=== PATIENT | male | born 1945 | race Caucasian/White ===

== ENCOUNTER 2024-06-06 16:49 | Inpatient (IN) ==
[2024-06-06 17:39] LABS: HCO3 VBG 29 mmol/L; Oxygen Saturation VBG 62.7 %; PCO2 VBG 40 mmHg (38-50); PO2 VBG 30 mmHg; pH VBG 7.47 (7.36-7.41)
[2024-06-06 17:39] LABS: Basophils # (auto) 0.07 K/uL (0.00-0.20); Basophils % (auto) 0.3 %; Eosinophils # (auto) 0.01 K/uL (0.00-0.50); Hematocrit (blood only) 48.2 % (42.0-52.0); Hemoglobin 17.2 g/dl (14.0-18.0); Immature Granulocytes # (auto) 0.18 K/uL (0.01-0.20); Immature Granulocytes % (auto) 0.8 %; Lymphocytes # (auto) 0.81 K/uL (1.20-3.40); Lymphocytes % (auto) 3.7 %; Mean Corpuscular Hemoglobin 29.3 pg (25.0-34.0); Mean Corpuscular Hgb Conc 35.7 g/dL (32.0-36.0); Mean Platelet Volume 10.4 fL (9.4-12.4); Monocytes # (auto) 1.54 K/uL (0.11-0.59); Monocytes % (auto) 7.1 %; Neutrophils # (auto) 19.14 K/uL (1.40-6.50); Neutrophils % (auto) 88.1 %; Platelet Count 331 K/uL (130-400); RDW Coefficient of Variation 12.7 % (11.5-14.5); RDW Standard Deviation 37.7 fL (36.4-46.3); Red Blood Count 5.88 M/uL (4.70-6.10); White Blood Count 21.75 K/ul (4.8-10.8)
--- NOTE | 2024-06-06 17:41 | Emergency Department Note ---
History of Present Illness General Chief complaint: Abdominal Pain Stated complaint: CONSTIPATED Time Seen by Provider: 06/06/24 17:23 History of Present Illness Provider complaint: Nausea Maximum Pain Intensity: 2 79-year-old male presents emergency department for nausea. Patient states he had hernia surgery done by Dr. Espinosa on Sunday. He states since then he has been having nausea hiccups and constipation. No fever. No vomiting. Patient reported feeling disoriented to nursing. Home Medications Medication Instructions Recorded Confirmed Type hydrocortisone 1 % topical cream 1 applic topical BID PRN skin 11/07/23 06/06/24 Rx irritation #28.35 grams allopurinol 300 mg tablet 300 mg PO DAILY PRN gout 05/21/24 06/06/24 History aspirin 81 mg capsule 81 mg PO QAM 05/21/24 06/06/24 History colchicine 0.6 mg capsule 0.6 mg PO QAM 05/21/24 06/06/24 History (Mitigare) lisinopril 5 mg tablet 5 mg PO QAM 05/21/24 06/06/24 History loratadine 10 mg tablet 10 mg PO QAM 05/21/24 06/06/24 History magnesium 250 mg tablet 250 mg PO QAM 05/21/24 06/06/24 History metoprolol succinate 100 mg 100 mg PO QAM 05/21/24 06/06/24 History tablet,extended release 24 hr potassium gluconate 550 mg (90 mg) 550 mg PO QAM 05/21/24 06/06/24 History tablet ascorbic acid (vitamin C) 250 mg 250 mg PO DAILY 06/03/24 06/06/24 History tablet (Vitamin C) oxycodone 5 mg tablet 5 - 10 mg (1 - 2 x 5 mg) PO 06/03/24 06/06/24 Rx .[id number] PRN pain, for initial therapy, max 6 tabs per day #15 tabs ondansetron 8 mg disintegrating 8 mg PO Q8H PRN nausea and 06/05/24 06/06/24 Rx tablet vomiting #10 tabs ketoconazole 2 % shampoo 1 applic topical DIRECTED 06/06/24 06/06/24 History Allergies Allergy/AdvReac Type Severity Reaction Status Date / Time animal dander Allergy Intermediate ITCHY Verified 06/06/24 18:51 EYES, SNEEZING, RUNNY NOSE, CONGESTION house dust Allergy Intermediate ITCHY Verified 06/06/24 18:51 EYES, SNEEZING, RUNNY NOSE, CONGESTION house dust mite Allergy Intermediate ITCHY Verified 06/06/24 18:51 EYES, SNEEZING, RUNNY NOSE, CONGESTION Penicillins Allergy Intermediate HIVES, Verified 06/06/24 18:51 ULCERATIONS OF MOUTH ragweed pollen Allergy Intermediate ITCHY Verified 06/06/24 18:51 EYES, SNEEZING, RUNNY NOSE, CONGESTION Sulfa (Sulfonamide Allergy Intermediate HIVES,ULCERATIONS Verified 06/06/24 18:51 Antibiotics) OF MOUTH weed pollen Allergy Intermediate ITCHY Verified 06/06/24 18:51 EYES, SNEEZING, RUNNY NOSE, CONGESTION shellfish derived AdvReac Severe GOUT FLARE Verified 06/06/24 18:51 UP Past Med/Surg History Problem List (Updated 06/06/24 @ 20:06 by Brando Olsen MD) Postoperative nausea (Acute) Elevated troponin (Acute) Hyponatremia (Acute) Encounter for pre-operative examination Arthritis Recurrent unilateral inguinal hernia with incarceration Right groin mass Right inguinal hernia Adenomatous polyp of colon Carpal tunnel syndrome, bilateral upper limbs Therapeutic drug monitoring Gout Diastasis recti Actinic keratoses (Acute) Ankle pain, right (Acute) Benign essential hypertension (Acute) Chronic gout (Acute) Obstructive sleep apnea (Acute) Seborrheic dermatitis (Acute) Vitiligo (Acute) Medical History ALBER (obstructive sleep apnea) CPAP Chronic gout Benign essential hypertension Hx of colonic polyp Surgical History H/O right inguinal hernia repair (06/03/24) Right Open Incarcerated Recurrent Inguinal Hernia Repair with Mesh(Right) - Angelito Espinosa DO History of anesthesia reaction severe cramps/dry heaves Hx of detached retina repair several History of cataract surgery b/l History of colonoscopy (2022) History of tonsillectomy and adenoidectomy History of inguinal hernia repair right 1968 History of cholecystectomy 1999 History of total hip replacement right Family History Brother Coronary heart disease Acute myocardial infarction Father Colon cancer, Onset Age: 60 of it metastatic to liver 62 Mother Stroke Hypertension Grandfather (Paternal) Myocardial infarction, Onset Age: 59 RI Grandfather (Maternal) Myocardial infarction, Onset Age: 40 RI age 40 Grandmother (Maternal) Schizophrenia, Onset Age: 60 Denies family history of Ovarian cancer Prostate cancer Breast cancer Social History Smoking Status: Never smoker Second Hand Exposure: No; Do You Dip or Chew Tobacco: No; Hx Alcohol Use: No Hx Substance Use: No Preferred Language: Faroese Communication Ability: Effective Visual Impairment: Limited Hearing Ability: Normal Emergency Room Clerk Required: No Beliefs That Will Affect Care: None marital status: Current Living Situation: Spouse current occupational status: employed 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 How many Children do You have: 2 Feels Safe at Home: Yes Childhood Exposure to Second-Hand Smoke: No Diet: regular caffeine: Yes during the past year weight has: remained stable Dental Care, Regularly: Yes Physical Activity Frequency: Daily Seatbelt Use: always Sunscreen Use: Yes Assistive Devices: Glasses Physical Exam Vital Signs Vital Signs - 24 hr 06/06/24 17:00 06/06/24 17:21 06/06/24 17:21 Temperature 36.6 C Temperature Source Temporal Artery Scan Pulse Rate 67 Pulse Rate [Apical] 67 Pulse Rate from SpO2 Sensor Respiratory Rate 18 20 Respiratory Effort / Characteristics Non-Labored Spontaneous Non-Labored Spontaneous Respiratory Depth Normal Normal Respiratory Pattern Regular Blood Pressure 225/110 H Blood Pressure [Left Arm] 224/121 H Blood Pressure Mean 148 Blood Pressure Mean [Left Arm] 155 Blood Pressure Position Sitting Pulse Oximetry 95 98 96 Oxygen Delivery Method Room Air Room Air Room Air Sepsis Recent Fever Within 48 Hours No Sepsis New/Unexplained Change in Mental Status N/A Sepsis Action Taken by Nursing No Action Required 06/06/24 17:24 06/06/24 17:34 06/06/24 18:03 Temperature Temperature Source Pulse Rate 67 Pulse Rate [Apical] 73 Pulse Rate from SpO2 Sensor Respiratory Rate 18 Respiratory Effort / Characteristics Non-Labored Spontaneous Respiratory Depth Normal Respiratory Pattern Blood Pressure Blood Pressure [Left Arm] 199/102 H Blood Pressure Mean Blood Pressure Mean [Left Arm] 134 Blood Pressure Position Pulse Oximetry 95 98 Oxygen Delivery Method Room Air Room Air Sepsis Recent Fever Within 48 Hours Sepsis New/Unexplained Change in Mental Status Sepsis Action Taken by Nursing 06/06/24 18:37 06/06/24 19:00 06/06/24 19:00 Temperature 36.6 C Temperature Source Oral Pulse Rate 72 Pulse Rate [Apical] 71 71 Pulse Rate from SpO2 Sensor 72 Respiratory Rate 20 18 17 Respiratory Effort / Characteristics Non-Labored Spontaneous Non-Labored Spontaneous Respiratory Depth Normal Normal Respiratory Pattern Regular Blood Pressure 212/133 H Blood Pressure [Left Arm] 196/111 H 212/133 H Blood Pressure Mean 174 Blood Pressure Mean [Left Arm] 139 159 Blood Pressure Position Pulse Oximetry 94 94 94 Oxygen Delivery Method Room Air Room Air Room Air Sepsis Recent Fever Within 48 Hours Sepsis New/Unexplained Change in Mental Status Sepsis Action Taken by Nursing 06/06/24 19:30 06/06/24 20:00 06/06/24 20:15 Temperature Temperature Source Pulse Rate 76 76 74 Pulse Rate [Apical] Pulse Rate from SpO2 Sensor 74 73 Respiratory Rate 20 17 15 Respiratory Effort / Characteristics Respiratory Depth Respiratory Pattern Blood Pressure 221/132 H 210/134 H 196/122 H Blood Pressure [Left Arm] Blood Pressure Mean 161 163 173 Blood Pressure Mean [Left Arm] Blood Pressure Position Pulse Oximetry 94 94 95 Oxygen Delivery Method Room Air Room Air Room Air Sepsis Recent Fever Within 48 Hours Sepsis New/Unexplained Change in Mental Status Sepsis Action Taken by Nursing 06/06/24 20:46 06/06/24 21:00 06/06/24 21:12 Temperature Temperature Source Pulse Rate 71 72 Pulse Rate [Apical] 75 Pulse Rate from SpO2 Sensor 71 Respiratory Rate 19 20 Respiratory Effort / Characteristics Non-Labored Spontaneous Respiratory Depth Normal Respiratory Pattern Regular Blood Pressure 218/122 H Blood Pressure [Left Arm] 186/106 H Blood Pressure Mean 154 Blood Pressure Mean [Left Arm] 132 Blood Pressure Position Pulse Oximetry 94 94 Oxygen Delivery Method Room Air Room Air Sepsis Recent Fever Within 48 Hours Sepsis New/Unexplained Change in Mental Status Sepsis Action Taken by Nursing Physical Exam HENT: Exam performed. - Head: Normocephalic and atraumatic. - Mouth/Throat: The oropharynx is clear and moist. No trismus in the jaw. No dental abscesses or uvula swelling. No oropharyngeal exudate or tonsillar abscesses. EYES: Conjunctivae and EOM are normal. Pupils are equal, round, and reactive to light. Right eye exhibits no discharge. Left eye exhibits no discharge. No scleral icterus. NECK: Normal range of motion. Neck supple. No JVD present. CV: Normal rate, regular rhythm, normal heart sounds and intact distal pulses. There is no peripheral edema. Palpable radial pulses bue. PULM/CHEST: Effort normal and breath sounds normal. No respiratory distress. No stridor. He has no wheezes. He has no rales. ABD: The abdomen is soft. Incision appears clean and dry in the right inguinal area. There are some ecchymosis around the right inguinal area. There is no drainage or bleeding from the incision. There is no tenderness. There is no rebound, no guarding : Ecchymosis over the patient's scrotum NEURO: He is alert and oriented to person, place, and time. He has normal strength. No cranial nerve deficit or sensory deficit. Coordination and gait normal. Cerebellar tests wnl. Course Course 1722: The patient was evaluated in room A2. A complete history and physical exam was performed Cardiac monitoring: An order was placed for continuous cardiac monitoring. The monitor shows a rate of 70 with sinus rhythm interpreted by ri 1905: Labs show leukocytosis 21.75. Sodium 127. Potassium 3.2. Gentle IV hydration started. High-sensitivity troponin 28.2. Patient not reporting any chest pain. Procalcitonin lactic acid within normal limits. CT head and chest x-ray is unremarkable. CT abdomen pelvis shows inflammatory changes of right groin with small pockets of fluid and gas likely representing postoperative changes. Prostamegaly with inflammation of the blood. Urinalysis is not concerning for UTI. Discussed with general surgery currently on-call for patient's surgeon Dr. Espinosa. She will be down to evaluate the patient. Will plan to admit the patient to medicine. [facility] will [facility] the patient for admission. Administered Medications Sodium Chloride (Nss) 1,000 mls @ 80 mls/hr IV .[id number] BEVERLEY Stop: 06/07/24 18:29 Last Admin: 06/06/24 19:49 Dose: 80 mls/hr Documented By: PURVI Discontinued Medications Sodium Chloride (Nss) 500 mls @ 125 mls/hr IV .Q4H BEVERLEY Stop: 06/06/24 21:44 Last Infusion: 06/06/24 21:52 Dose: Infused Documented By: Admin: 06/06/24 17:54 Dose: 125 mls/hr Documented By: HARLEY Ioversol (Optiray 320 100ml) 93 ml IV ONCE ONE Stop: 06/06/24 17:44 Last Admin: 06/06/24 17:43 Dose: 93 ml Documented By: OSEI Ondansetron HCl (Ondansetron Inj 2 Mg/Ml 2 Ml Vial) 4 mg IV NOW STA Stop: 06/06/24 17:42 Last Admin: 06/06/24 17:54 Dose: 4 mg Documented By: HARLEY Medical Decision Making Medical Records Attestation: I reviewed the patient's medical records. External medical records reviewed. Patient had open incarcerated recurrent inguinal hernia repair performed by Dr. Espinosa on June 03, 2024. Laboratory Data Attestation: I reviewed the patient's lab results. 06/06/24 17:24 06/06/24 17:24 Lab Results 06/06/24 06/06/24 06/06/24 Range/Units 17:24 17:25 17:34 WBC 21.75 H (4.8-10.8) K/ul RBC 5.88 (4.70-6.10) M/uL Hgb 17.2 (14.0-18.0) g/dl POC Hgb 16.3 (14.0-18.0) g/dl Hct 48.2 (42.0-52.0) % POC Hct 48 (42-52) % MCV 82.0 (80.0-100.0) fL MCH 29.3 (25.0-34.0) pg MCHC 35.7 (32.0-36.0) g/dL RDW Std Deviation 37.7 (36.4-46.3) fL RDW Coeff of [place] 12.7 (11.5-14.5) % Plt Count 331 (130-400) K/uL MPV 10.4 (9.4-12.4) fL Immature Gran % (Auto) 0.8 % Neut % (Auto) 88.1 % Lymph % (Auto) 3.7 % [place] % (Auto) 7.1 % Eos % (Auto) 0.0 % Baso % (Auto) 0.3 % Neut # (Auto) 19.14 H (1.40-6.50) K/uL Lymph # (Auto) 0.81 L (1.20-3.40) K/uL [place] # (Auto) 1.54 H (0.11-0.59) K/uL Eos # (Auto) 0.01 (0.00-0.50) K/uL Baso # (Auto) 0.07 (0.00-0.20) K/uL Immature Gran # (Auto) 0.18 (0.01-0.20) K/uL PT 11.8 (9.0-12.0) Seconds INR 1.1 (0.9-1.1) APTT 32 H (21-31) Seconds PTT Ratio 1.2 VBG pH 7.47 H (7.36-7.41) VBG pCO2 40 (38-50) mmHg VBG pO2 30 mmHg VBG HCO3 29 mmol/L VBG O2 Saturation 62.7 % VBG Base Excess 5.0 mEq/L POC Sodium 127 L (135-144) mmol/L Sodium 127 L (136-145) mmol/L POC Potassium 2.8 L (3.3-5.0) mmol/L Potassium 3.2 L (3.5-5.1) mmol/L POC Chloride 87 L (101-112) mmol/L Chloride 86 L (98-107) mmol/L Carbon Dioxide 31 (21-32) mmol/L POC Total CO2 28 (24-31) mmol/L Anion Gap 10 (3-11) POC Anion Gap 16.0 (16-25) mmol/L POC BUN 21 H (7-18) mg/dl BUN 19 (6-23) mg/dl Creatinine 1.01 (0.6-1.4) mg/dl POC Creatinine 1.1 (0.6-1.3) mg/dl Est Cr Clr Drug Dosing 68.0 ml/min eGFR 76.60 BUN/Creatinine Ratio 18.8 (10-20) Glucose 136 H (70-99(Fasting)) mg/dl POC Glucose (other) 135 H (70-99) mg/dl Lactate 1.5 (0.4-2.0) mmol/L Calcium 9.6 (8.6-10.3) mg/dl POC Ioniz Calcium Gigi 1.04 L (1.12-1.32) mmol/l Magnesium 1.6 L (1.7-2.4) mg/dl Total Bilirubin 1.7 H (0.2-1.0) mg/dl AST 18 (13-39) U/L ALT 13 (7-52) U/L Alkaline Phosphatase 79 (34-104) U/L Troponin I High Sens 28.2 H (0-20) pg/ml Total Protein 8.7 H (6.0-8.3) gm/dl Albumin 4.6 (3.4-5.0) gm/dl Globulin 4.1 H (2.5-4.0) gm/dl Albumin/Globulin Ratio 1.1 (0.9-2) Lipase 10 L (11-82) U/L Procalcitonin 0.13 (0-0.5) ng/ml Urine Color Urine Appearance (Clear) Urine pH (4.5-7.5) Ur Specific [place] (1.000-1.030) Urine Protein (Negative) Urine Glucose (UA) (Negative) Urine Ketones (Negative) Urine Blood (Negative) Urine Nitrite (Negative) Urine Bilirubin (Negative) Urine Urobilinogen (Negative) Ur Leukocyte Esterase (Negative) Urine WBC (Auto) (0-5) /hpf Urine RBC (Auto) (0-2) /hpf U Hyaline Cast (Auto) (0-2) /lpf U Epithel Cells (Auto) (0-2) /hpf Urine Bacteria (Auto) (None Seen) 06/06/24 06/06/24 Range/Units 18:10 18:55 WBC (4.8-10.8) K/ul RBC (4.70-6.10) M/uL Hgb (14.0-18.0) g/dl POC Hgb (14.0-18.0) g/dl Hct (42.0-52.0) % POC Hct (42-52) % MCV (80.0-100.0) fL MCH (25.0-34.0) pg MCHC (32.0-36.0) g/dL RDW Std Deviation (36.4-46.3) fL RDW Coeff of [place] (11.5-14.5) % Plt Count (130-400) K/uL MPV (9.4-12.4) fL Immature Gran % (Auto) % Neut % (Auto) % Lymph % (Auto) % [place] % (Auto) % Eos % (Auto) % Baso % (Auto) % Neut # (Auto) (1.40-6.50) K/uL Lymph # (Auto) (1.20-3.40) K/uL [place] # (Auto) (0.11-0.59) K/uL Eos # (Auto) (0.00-0.50) K/uL Baso # (Auto) (0.00-0.20) K/uL Immature Gran # (Auto) (0.01-0.20) K/uL PT (9.0-12.0) Seconds INR (0.9-1.1) APTT (21-31) Seconds PTT Ratio VBG pH (7.36-7.41) VBG pCO2 (38-50) mmHg VBG pO2 mmHg VBG HCO3 mmol/L VBG O2 Saturation % VBG Base Excess mEq/L POC Sodium (135-144) mmol/L Sodium (136-145) mmol/L POC Potassium (3.3-5.0) mmol/L Potassium (3.5-5.1) mmol/L POC Chloride (101-112) mmol/L Chloride (98-107) mmol/L Carbon Dioxide (21-32) mmol/L POC Total CO2 (24-31) mmol/L Anion Gap (3-11) POC Anion Gap (16-25) mmol/L POC BUN (7-18) mg/dl BUN (6-23) mg/dl Creatinine (0.6-1.4) mg/dl POC Creatinine (0.6-1.3) mg/dl Est Cr Clr Drug Dosing ml/min eGFR BUN/Creatinine Ratio (10-20) Glucose (70-99(Fasting)) mg/dl POC Glucose (other) (70-99) mg/dl Lactate (0.4-2.0) mmol/L Calcium (8.6-10.3) mg/dl POC Ioniz Calcium Gigi (1.12-1.32) mmol/l Magnesium (1.7-2.4) mg/dl Total Bilirubin (0.2-1.0) mg/dl AST (13-39) U/L ALT (7-52) U/L Alkaline Phosphatase (34-104) U/L Troponin I High Sens 16.7 D (0-20) pg/ml Total Protein (6.0-8.3) gm/dl Albumin (3.4-5.0) gm/dl Globulin (2.5-4.0) gm/dl Albumin/Globulin Ratio (0.9-2) Lipase (11-82) U/L Procalcitonin (0-0.5) ng/ml Urine Color Yellow Urine Appearance Clear (Clear) Urine pH 7.0 (4.5-7.5) Ur Specific [place] 1.017 (1.000-1.030) Urine Protein 1+ H (Negative) Urine Glucose (UA) Negative (Negative) Urine Ketones Negative (Negative) Urine Blood 1+ H (Negative) Urine Nitrite Negative (Negative) Urine Bilirubin Negative (Negative) Urine Urobilinogen Negative (Negative) Ur Leukocyte Esterase Negative (Negative) Urine WBC (Auto) 0-5 (0-5) /hpf Urine RBC (Auto) 6-10 H (0-2) /hpf U Hyaline Cast (Auto) 0-2 (0-2) /lpf U Epithel Cells (Auto) 0-2 (0-2) /hpf Urine Bacteria (Auto) None Seen (None Seen) Imaging Data Attestation: I personally reviewed and interpreted this imaging study as follows: My Impression: Chest x-ray negative. Airway clear. No pneumothorax. No consolidation. No cardiomegaly or cephalization.. No free air under the diaphragm. No fractures of the skeletal structures. Radiologist's Impression: Abdomen/Pelvis CT 06/06/24 17:24 CT ABDOMEN and PELVIS with INTRAVENOUS CONTRAST HISTORY: Abdominal pain TECHNIQUE: CT abdomen and pelvis with contrast. IV CONTRAST: 100 mL of OMNIPAQUE 300 ENTERIC CONTRAST: Not Given COMPARISON: FINDINGS: LOWER CHEST: Mild cardiac enlargement. Coronary calcifications. LIVER: No focal lesion identified. Hepatic steatosis and hepatomegaly. GALLBLADDER/BILIARY: Unremarkable gallbladder. No abnormal biliary dilatation. SPLEEN: Unremarkable. PANCREAS: Unremarkable. ADRENALS: Unremarkable. KIDNEYS: Cortical cysts. No stones or hydronephrosis identified. PERITONEUM/RETROPERITONEUM. No lymphadenopathy by size criteria. No aortic aneurysm. GASTROINTESTINAL: No obstruction. Normal appendix. Multiple loops of small bowel demonstrate mild inflammatory dense wall thickening. There is mild gastric wall thickening as well. Colonic diverticulosis without evidence of diverticulitis. Small duodenal diverticula. REPRODUCTIVE: Enlarged prostate gland with coarse calcifications impinging upon the urinary bladder outlet. URINARY BLADDER: Moderately distended with circumferential wall thickening. ABDOMINAL Wall: Inflammatory changes in the right groin with small pockets of fluid and gas in the inguinal canal extending into the right scrotum. BONES: No acute findings. Right hip arthroplasty. IMPRESSION: Findings suggesting mild gastroenteritis. Normal appendix is identified. Prostamegaly enlarged, nodular prostate causing urinary bladder outlet obstruction. Inflammatory appearance of the urinary bladder could also be due to superimposed cystitis. Recommend correlation with urinalysis. Inflammatory changes in the right groin with small pockets of fluid and gas may represent postoperative changes from recent inguinal hernia repair. Please clinically correlate with direct inspection to exclude superimposed infection/early abscess formation. Electronically signed by Evens Gutierrez 06-06-2024 6:28 PM Chest X-Ray 06/06/24 17:24 EXAM: XR chest 1V portable CLINICAL HISTORY: Sepsis. TECHNIQUE: X-ray images of the chest were obtained in AP projection. COMPARISON: No prior studies available for comparison. FINDINGS: Pulmonary Parenchyma: Lungs are clear bilaterally. No evidence of consolidation, collapse, or focal opacities. No pulmonary nodules identified. Minimal blunting of both costophrenic angles, donating mild pleural effusion / pleural thickening. Heart and Mediastinum: Heart size and shape are normal. No mediastinal widening or masses. No hilar or mediastinal lymphadenopathy. LEDs are overlaying both chest modi Bony Thorax: Bony thorax appears intact without fractures or deformities. Soft Tissues: Soft tissues overlying the chest wall are unremarkable. IMPRESSION: 1. No acute cardiopulmonary abnormalities identified. 2. Minimal blunting of both costophrenic angles, donating mild pleural effusion / pleural thickening. Electronically signed by Leo Lira 06-06-2024 6:[address] 06/06/24 17:25 Clinical History: Confusion Technique: Axial computed tomography images were obtained of the brain without intravenous contrast. Findings: There is diffuse cerebral atrophy, within expected limits for the patient's age. Areas of decreased attenuation are seen within the periventricular white matter, likely representing chronic small vessel ischemic disease. There is no definite sign of acute or old infarction. No intracranial hemorrhage is evident. No definite mass lesion is seen on this noncontrast examination. There is no midline shift or other form of herniation. No hydrocephalus is seen. No fracture is identified. The orbits and the visualized paranasal sinuses appear unremarkable. The mastoid air cells appear clear. Impression: 1. Cerebral atrophy and chronic small vessel ischemic disease 2. Otherwise unremarkable noncontrast CT of the brain Electronically signed by Eduardo Motley 06-06-2024 6:15 PM ECG Data Attestation: I personally reviewed and interpreted this ECG as follows: Rate (beats per minute): 67 Rhythm: + normal sinus ECG Intervals/blocks: + Normal QRS, + Normal FL and + Normal QT-c ECG ST segments: + Normal ST segments [facility] Narrative 1723: The patient was evaluated in room A2. A complete history and physical exam was performed Cardiac monitoring: An order was placed for continuous cardiac monitoring. The monitor shows a rate of 70 with sinus rhythm interpreted by me 1905: Labs show leukocytosis 21.75. Sodium 127. Potassium 3.2. Gentle IV hydration started. High-sensitivity troponin 28.2. Patient not reporting any chest pain. Procalcitonin lactic acid within normal limits. CT head and chest x-ray is unremarkable. CT abdomen pelvis shows inflammatory changes of right groin with small pockets of fluid and gas likely representing postoperative changes. Prostamegaly with inflammation of the blood. Urinalysis is not concerning for UTI. Discussed with general surgery currently on-call for patient's surgeon Dr. Espinosa. She will be down to evaluate the patient. Will plan to admit the patient to medicine. Dr. Hogan from [facility] hospitalist team will evaluate the patient for admission. Impression & Plan Hyponatremia, Elevated troponin, Postoperative nausea Discharge Plan Visit Data Chief Complaint: Abdominal Pain Stated Complaint: CONSTIPATED ED Provider: Brando Olsen Discharge Problem: Hyponatremia, Elevated troponin, Postoperative nausea Patient Disposition: Being Evaluated by Hospitalist Forms Stand Alone Forms: My [facility] Prescriptions Prescriptions: No Action ondansetron 8 mg tablet,disintegrating 8 mg PO Q8H PRN (Reason: nausea and vomiting) Qty: 10 0RF hydrocortisone 1 % cream 1 applic topical BID PRN (Reason: skin irritation) Qty: 28.35 2RF Rx Instructions: avoid around the eyes or rubbing eyes after use aspirin 81 mg Capsule 81 mg PO QAM metoprolol succinate 100 mg tablet extended release 24 hr 100 mg PO QAM allopurinol 300 mg tablet 300 mg PO DAILY PRN (Reason: gout) magnesium 250 mg tablet 250 mg PO QAM lisinopril 5 mg tablet 5 mg PO QAM loratadine 10 mg tablet 10 mg PO QAM potassium gluconate 550 mg (90 mg) tablet 550 mg PO QAM colchicine [Mitigare] 0.6 mg capsule 0.6 mg PO QAM ascorbic acid (vitamin C) [Vitamin C] 250 mg Tablet 250 mg PO DAILY oxycodone 5 mg tablet 5 - 10 mg PO .[id number] PRN (Reason: pain, for initial therapy, max 6 tabs per day) Qty: 15 0RF ketoconazole 2 % shampoo 1 applic topical DIRECTED Referrals Referrals: Ras Cintron MD [Primary Care Provider] -
[2024-06-06] MEDS: OPTIRAY 320 100ml IV ONE (17:43)
[2024-06-06 17:45] LABS: iSTAT Creatinine 1.1 mg/dl (0.6-1.3); iSTAT Hemoglobin 16.3 g/dl (14.0-18.0); iSTAT Ionized Calcium 1.04 mmol/l (1.12-1.32); iSTAT Potassium 2.8 mmol/L (3.3-5.0)
[2024-06-06] MEDS: ONDANSETRON INJ 2 MG/ML 2 ML VIAL IV STA (17:54)
[2024-06-06] MEDS: SODIUM CHLORIDE 0.9% 500 ML IV SCH (17:54)
[2024-06-06 17:56] LABS: Albumin Globulin Ratio 1.1 (0.9-2); Albumin Level 4.6 gm/dl (3.4-5.0); BUN Creatinine Ratio 18.8 (10-20); Bilirubin,Total 1.7 mg/dl (0.2-1.0); Calcium 9.6 mg/dl (8.6-10.3); Globulin 4.1 gm/dl (2.5-4.0); Magnesium 1.6 mg/dl (1.7-2.4); Potassium 3.2 mmol/L (3.5-5.1); Total Protein 8.7 gm/dl (6.0-8.3)
[2024-06-06 18:02] LABS: Troponin I High Sensitivity 28.2 pg/ml (0-20)
[2024-06-06 18:04] LABS: INR 1.1 (0.9-1.1); Partial Thromboplastin Ratio 1.2; Partial Thromboplastin Time 32 Seconds (21-31); Prothrombin Time 11.8 Seconds (9.0-12.0)
--- NOTE | 2024-06-06 18:17 | CT Scan Report ---
Clinical History: Confusion Technique: Axial computed tomography images were obtained of the brain without intravenous contrast. Findings: There is diffuse cerebral atrophy, within expected limits for the patient's age. Areas of decreased attenuation are seen within the periventricular white matter, likely representing chronic small vessel ischemic disease. There is no definite sign of acute or old infarction. No intracranial hemorrhage is evident. No definite mass lesion is seen on this noncontrast examination. There is no midline shift or other form of herniation. No hydrocephalus is seen. No fracture is identified. The orbits and the visualized paranasal sinuses appear unremarkable. The mastoid air cells appear clear. Impression: 1. Cerebral atrophy and chronic small vessel ischemic disease 2. Otherwise unremarkable noncontrast CT of the brain Electronically signed by Eduardo Motley 06-06-2024 6:15 PM
[2024-06-06 18:21] LABS: Appearance Urine Clear (Clear); Bacteria Urine Automated None Seen (None Seen); Bilirubin Urine Negative (Negative); Blood Urine 1+ (Negative); Cast Urine Automated 0-2 /lpf (0-2); Color Urine Yellow; Epithelial Cell Urine Auto 0-2 /hpf (0-2); Glucose Urine UA Negative (Negative); Ketones Urine Negative (Negative); Leukocyte Esterase Urine Negative (Negative); Nitrite Urine Negative (Negative); Protein Urine 1+ (Negative); Specific Gravity Urine 1.017 (1.000-1.030); Urobilinogen Urine Negative (Negative); WBC Urine Automated 0-5 /hpf (0-5)
--- NOTE | 2024-06-06 18:28 | CT Scan Report ---
CT ABDOMEN and PELVIS with INTRAVENOUS CONTRAST HISTORY: Abdominal pain TECHNIQUE: CT abdomen and pelvis with contrast. IV CONTRAST: 100 mL of OMNIPAQUE 300 ENTERIC CONTRAST: Not Given COMPARISON: FINDINGS: LOWER CHEST: Mild cardiac enlargement. Coronary calcifications. LIVER: No focal lesion identified. Hepatic steatosis and hepatomegaly. GALLBLADDER/BILIARY: Unremarkable gallbladder. No abnormal biliary dilatation. SPLEEN: Unremarkable. PANCREAS: Unremarkable. ADRENALS: Unremarkable. KIDNEYS: Cortical cysts. No stones or hydronephrosis identified. PERITONEUM/RETROPERITONEUM. No lymphadenopathy by size criteria. No aortic aneurysm. GASTROINTESTINAL: No obstruction. Normal appendix. Multiple loops of small bowel demonstrate mild inflammatory dense wall thickening. There is mild gastric wall thickening as well. Colonic diverticulosis without evidence of diverticulitis. Small duodenal diverticula. REPRODUCTIVE: Enlarged prostate gland with coarse calcifications impinging upon the urinary bladder outlet. URINARY BLADDER: Moderately distended with circumferential wall thickening. ABDOMINAL Wall: Inflammatory changes in the right groin with small pockets of fluid and gas in the inguinal canal extending into the right scrotum. BONES: No acute findings. Right hip arthroplasty. IMPRESSION: Findings suggesting mild gastroenteritis. Normal appendix is identified. Prostamegaly enlarged, nodular prostate causing urinary bladder outlet obstruction. Inflammatory appearance of the urinary bladder could also be due to superimposed cystitis. Recommend correlation with urinalysis. Inflammatory changes in the right groin with small pockets of fluid and gas may represent postoperative changes from recent inguinal hernia repair. Please clinically correlate with direct inspection to exclude superimposed infection/early abscess formation. Electronically signed by Evens Gutierrez 06-06-2024 6:28 PM
--- NOTE | 2024-06-06 18:50 | XRay Report ---
EXAM: XR chest 1V portable CLINICAL HISTORY: Sepsis. TECHNIQUE: X-ray images of the chest were obtained in AP projection. COMPARISON: No prior studies available for comparison. FINDINGS: Pulmonary Parenchyma: Lungs are clear bilaterally. No evidence of consolidation, collapse, or focal opacities. No pulmonary nodules identified. Minimal blunting of both costophrenic angles, donating mild pleural effusion / pleural thickening. Heart and Mediastinum: Heart size and shape are normal. No mediastinal widening or masses. No hilar or mediastinal lymphadenopathy. LEDs are overlaying both chest modi Bony Thorax: Bony thorax appears intact without fractures or deformities. Soft Tissues: Soft tissues overlying the chest wall are unremarkable. IMPRESSION: 1. No acute cardiopulmonary abnormalities identified. 2. Minimal blunting of both costophrenic angles, donating mild pleural effusion / pleural thickening. Electronically signed by Leo Lira 06-06-2024 6:49 PM
[2024-06-06] MEDS: SODIUM CHLORIDE 0.9% 1,000 ML IV SCH (19:49)
[2024-06-06 19:52] LABS: Troponin I High Sensitivity 16.7 pg/ml (0-20)
--- NOTE | 2024-06-06 20:20 | History & Physical Report ---
Date of Service June 06, 2024 Assessment & Plan (1) Nausea: (2) Constipation: (3) Electrolyte abnormality: (4) Benign essential hypertension: (5) Chronic gout: (6) Obstructive sleep apnea: Plan 79yo male s/p right inguinal hernia repair presenting with nausea, constipation. Patient's pain at the surgical site is minimal - he has been taking PRN Tylenol infrequently. No BM since prior to surgery. No fever, chills or other signs of infection #Nausea -Zofan PRN -KUB in AM -Clear liquids for now, advance as tolerated. Patient has been eating at home, although diminished appetite -Consider IV antibiotics - WBC count=21 #Constipation -Dulcolax 10mg DC daily -Docusate/Senna q AM -Miralax PRN #Electrolyte abnormality -Check PO4 -KCL 40mEq PO -Mg x 2gm IV -Calcium gluconate x 2gm IV -Continue IVF - LR at 100mL/hr x 2L -Repeat chemistry in AM #Hypertension -Continue Lisinopril 5mg po qAM -Continue metoprolol 100mg po qAM -Hydralazine 10mg po TID as needed for BP > 180/110 #Chronic Gout -Continue Colchicine #ALBER -CPAP qHS History of Present Illness Chief Complaint: nausea, constipation, weakness and fatigue Primary Care Provider: Ras Cintron MD Oscar Gu is a 79yo male with history of ALBER, HTN, recent repair of incarcerated right inguinal hernia on 06/03/[address] Espinosa presenting with overall fee ling of weakness, fatigue as well as nausea, constipation and hiccups. Patient reports ongoing nausea since having his surgery on 06/03. He has had dry heaving and ongoing hiccups. Last BM was on 06/03 prior to having surgery. He is passing flatus without difficulty. He notes some mild abdominal distention but no pain. Patient has been taking tylenol as needed for pain, no opioids. Has had poor appetite and decreased oral intake. No additional complaints. In the ER he is afebrile, hypertensive ER Course: Zofran NSS Allergies Allergy/AdvReac Type Severity Reaction Status Date / Time animal dander Allergy Intermediate ITCHY Verified 06/06/24 18:51 EYES, SNEEZING, RUNNY NOSE, CONGESTION house dust Allergy Intermediate ITCHY Verified 06/06/24 18:51 EYES, SNEEZING, RUNNY NOSE, CONGESTION house dust mite Allergy Intermediate ITCHY Verified 06/06/24 18:51 EYES, SNEEZING, RUNNY NOSE, CONGESTION Penicillins Allergy Intermediate HIVES, Verified 06/06/24 18:51 ULCERATIONS OF MOUTH ragweed pollen Allergy Intermediate ITCHY Verified 06/06/24 18:51 EYES, SNEEZING, RUNNY NOSE, CONGESTION Sulfa (Sulfonamide Allergy Intermediate HIVES,ULCERATIONS Verified 06/06/24 18:51 Antibiotics) OF MOUTH weed pollen Allergy Intermediate ITCHY Verified 06/06/24 18:51 EYES, SNEEZING, RUNNY NOSE, CONGESTION shellfish derived AdvReac Severe GOUT FLARE Verified 06/06/24 18:51 UP Home Medications Medication Instructions Recorded Confirmed Type hydrocortisone 1 % topical cream 1 applic topical BID PRN skin 11/07/23 06/06/24 Rx irritation #28.35 grams allopurinol 300 mg tablet 300 mg PO DAILY PRN gout 05/21/24 06/06/24 History aspirin 81 mg capsule 81 mg PO QAM 05/21/24 06/06/24 History colchicine 0.6 mg capsule 0.6 mg PO QAM 05/21/24 06/06/24 History (Mitigare) lisinopril 5 mg tablet 5 mg PO QAM 05/21/24 06/06/24 History loratadine 10 mg tablet 10 mg PO QAM 05/21/24 06/06/24 History magnesium 250 mg tablet 250 mg PO QAM 05/21/24 06/06/24 History metoprolol succinate 100 mg 100 mg PO QAM 05/21/24 06/06/24 History tablet,extended release 24 hr potassium gluconate 550 mg (90 mg) 550 mg PO QAM 05/21/24 06/06/24 History tablet ascorbic acid (vitamin C) 250 mg 250 mg PO DAILY 06/03/24 06/06/24 History tablet (Vitamin C) oxycodone 5 mg tablet 5 - 10 mg (1 - 2 x 5 mg) PO 06/03/24 06/06/24 Rx .[id number] PRN pain, for initial therapy, max 6 tabs per day #15 tabs ondansetron 8 mg disintegrating 8 mg PO Q8H PRN nausea and 06/05/24 06/06/24 Rx tablet vomiting #10 tabs ketoconazole 2 % shampoo 1 applic topical DIRECTED 06/06/24 06/06/24 History Past Med/Surg History Problem List (Updated 06/06/24 @ 22:28 by Rachna Hogan DO) Electrolyte abnormality Constipation Nausea Postoperative nausea (Acute) Elevated troponin (Acute) Hyponatremia (Acute) Encounter for pre-operative examination Arthritis Recurrent unilateral inguinal hernia with incarceration Right groin mass Right inguinal hernia Adenomatous polyp of colon Carpal tunnel syndrome, bilateral upper limbs Therapeutic drug monitoring Gout Diastasis recti Actinic keratoses (Acute) Ankle pain, right (Acute) Benign essential hypertension (Acute) Chronic gout (Acute) Obstructive sleep apnea (Acute) Seborrheic dermatitis (Acute) Vitiligo (Acute) Medical History ALBER (obstructive sleep apnea) CPAP Chronic gout Benign essential hypertension Hx of colonic polyp Surgical History H/O right inguinal hernia repair (06/03/24) Right Open Incarcerated Recurrent Inguinal Hernia Repair with Mesh(Right) - Angelito Espinosa DO History of anesthesia reaction severe cramps/dry heaves Hx of detached retina repair several History of cataract surgery b/l History of colonoscopy (2022) History of tonsillectomy and adenoidectomy History of inguinal hernia repair right 1968 History of cholecystectomy 1999 History of total hip replacement right Family History Brother Coronary heart disease Acute myocardial infarction Father Colon cancer, Onset Age: 60 of it metastatic to liver 62 Mother Stroke Hypertension Grandfather (Paternal) Myocardial infarction, Onset Age: 59 [place] Grandfather (Maternal) Myocardial infarction, Onset Age: 40 [place] age 40 Grandmother (Maternal) Schizophrenia, Onset Age: 60 Denies family history of Ovarian cancer Prostate cancer Breast cancer Social History Smoking Status: Never smoker Second Hand Exposure: No; Do You Dip or Chew Tobacco: No; Hx Alcohol Use: No Hx Substance Use: No Preferred Language: Qatari Communication Ability: Effective Visual Impairment: Limited Hearing Ability: Normal [place] Required: No Beliefs That Will Affect Care: None marital status: Current Living Situation: Spouse current occupational status: employed 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 How many Children do You have: 2 Feels Safe at Home: Yes Childhood Exposure to Second-Hand Smoke: No Diet: regular caffeine: Yes during the past year weight has: remained stable Dental Care, Regularly: Yes Physical Activity Frequency: Daily Seatbelt Use: always Sunscreen Use: Yes Assistive Devices: Glasses Review of Systems Review of Systems: All systems reviewed & are unremarkable except as noted in HPI & below Physical Exam Physical Exam: General: patient resting comfortably, NAD, non-toxic in appearance, AA&O x 4 Skin: warm, dry, intact, no rashes or lesions HEENT: NC/AT, PERRL, EOMI, anicteric sclera, conjunctiva without injection, external ear normal to inspection and nontender, nares patent, moist mucus membranes, dentition intact, no oropharyngeal lesions, neck supple, trachea midline, no LAD, no thyromegaly, no JVD Heart: +S1/S2, regular, no m/r/g Lungs: equal air entry bilaterally, no rales/rhonchi/wheezes Abd: +BS, soft, mildly distended, diminished bowel sounds, no masses/organomegaly/ascites Right inguinal hernia site with steri strips in place, c/d/i, bruising in the area, no drainage or erythema Ext: warm, 2+ pulses in UE/LE bilaterally, no clubbing/cyanosis or edema Neuro: nonfocal, patient AA&O x 4, speech intact, no facial droop, moving all extremities on command with equal strength 5/5 Results & Data Results & Data Vital Signs (Past 12 Hours) Vital Signs Temp Pulse Pulse Resp BP BP Pulse Ox 06/06/24 19:00 36.6 C 71 18 212/133 H 94 06/06/24 18:37 71 20 196/111 H 94 06/06/24 18:03 73 18 199/102 H 98 06/06/24 17:34 95 06/06/24 17:24 67 06/06/24 17:21 67 20 224/121 H 96 06/06/24 17:21 98 06/06/24 17:00 36.6 C 67 18 225/110 H 95 O2 Del Method 06/06/24 19:00 Room Air 06/06/24 18:37 Room Air 06/06/24 18:03 Room Air 06/06/24 17:34 Room Air 06/06/24 17:24 06/06/24 17:21 Room Air 06/06/24 17:21 Room Air 06/06/24 17:00 Room Air Laboratory Results Laboratory Results WBC 21.75 K/ul (4.8-10.8) H 06/06/24 17:24 RBC 5.88 M/uL (4.70-6.10) 06/06/24 17:24 Hgb 17.2 g/dl (14.0-18.0) 06/06/24 17:24 POC Hgb 16.3 g/dl (14.0-18.0) 06/06/24 17:34 Hct 48.2 % (42.0-52.0) 06/06/24 17:24 POC Hct 48 % (42-52) 06/06/24 17:34 MCV 82.0 fL (80.0-100.0) 06/06/24 17:24 MCH 29.3 pg (25.0-34.0) 06/06/24 17:24 MCHC 35.7 g/dL (32.0-36.0) 06/06/24 17:24 RDW Std Deviation 37.7 fL (36.4-46.3) 06/06/24 17:24 RDW Coeff of Vesta 12.7 % (11.5-14.5) 06/06/24 17:24 Plt Count 331 K/uL (130-400) 06/06/24 17:24 MPV 10.4 fL (9.4-12.4) 06/06/24 17:24 Immature Gran % (Auto) 0.8 % 06/06/24 17:24 Neut % (Auto) 88.1 % 06/06/24 17:24 Lymph % (Auto) 3.7 % 06/06/24 17:24 [place] % (Auto) 7.1 % 06/06/24 17:24 Eos % (Auto) 0.0 % 06/06/24 17:24 Baso % (Auto) 0.3 % 06/06/24 17:24 Neut # (Auto) 19.14 K/uL (1.40-6.50) H 06/06/24 17:24 Lymph # (Auto) 0.81 K/uL (1.20-3.40) L 06/06/24 17:24 [place] # (Auto) 1.54 K/uL (0.11-0.59) H 06/06/24 17:24 Eos # (Auto) 0.01 K/uL (0.00-0.50) 06/06/24 17:24 Baso # (Auto) 0.07 K/uL (0.00-0.20) 06/06/24 17:24 Immature Gran # (Auto) 0.18 K/uL (0.01-0.20) 06/06/24 17:24 PT 11.8 Seconds (9.0-12.0) 06/06/24 17:24 INR 1.1 (0.9-1.1) 06/06/24 17:24 APTT 32 Seconds (21-31) H 06/06/24 17:24 PTT Ratio 1.2 06/06/24 17:24 VBG pH 7.47 (7.36-7.41) H 06/06/24 17:25 VBG pCO2 40 mmHg (38-50) 06/06/24 17:25 VBG pO2 30 mmHg 06/06/24 17:25 VBG HCO3 29 mmol/L 06/06/24 17:25 VBG O2 Saturation 62.7 % 06/06/24 17:25 VBG Base Excess 5.0 mEq/L 06/06/24 17:25 POC Sodium 127 mmol/L (135-144) L 06/06/24 17:34 Sodium 127 mmol/L (136-145) L 06/06/24 17:24 POC Potassium 2.8 mmol/L (3.3-5.0) L 06/06/24 17:34 Potassium 3.2 mmol/L (3.5-5.1) L 06/06/24 17:24 POC Chloride 87 mmol/L (101-112) L 06/06/24 17:34 Chloride 86 mmol/L (98-107) L 06/06/24 17:24 Carbon Dioxide 31 mmol/L (21-32) 06/06/24 17:24 POC Total CO2 28 mmol/L (24-31) 06/06/24 17:34 Anion Gap 10 (3-11) 06/06/24 17:24 POC Anion Gap 16.0 mmol/L (16-25) 06/06/24 17:34 POC BUN 21 mg/dl (7-18) H 06/06/24 17:34 BUN 19 mg/dl (6-23) 06/06/24 17:24 Creatinine 1.01 mg/dl (0.6-1.4) 06/06/24 17:24 POC Creatinine 1.1 mg/dl (0.6-1.3) 06/06/24 17:34 Est Cr Clr Drug Dosing 68.0 ml/min 06/06/24 17:24 eGFR 76.60 06/06/24 17:24 BUN/Creatinine Ratio 18.8 (10-20) 06/06/24 17:24 Glucose 136 mg/dl (70-99(Fasting)) H 06/06/24 17:24 POC Glucose (other) 135 mg/dl (70-99) H 06/06/24 17:34 Lactate 1.5 mmol/L (0.4-2.0) 06/06/24 17:25 Calcium 9.6 mg/dl (8.6-10.3) 06/06/24 17:24 POC Ioniz Calcium Gigi 1.04 mmol/l (1.12-1.32) L 06/06/24 17:34 Magnesium 1.6 mg/dl (1.7-2.4) L 06/06/24 17:24 Total Bilirubin 1.7 mg/dl (0.2-1.0) H 06/06/24 17:24 AST 18 U/L (13-39) 06/06/24 17:24 ALT 13 U/L (7-52) 06/06/24 17:24 Alkaline Phosphatase 79 U/L (34-104) 06/06/24 17:24 Troponin I High Sens 16.7 pg/ml (0-20) D 06/06/24 18:55 Total Protein 8.7 gm/dl (6.0-8.3) H 06/06/24 17:24 Albumin 4.6 gm/dl (3.4-5.0) 06/06/24 17:24 Globulin 4.1 gm/dl (2.5-4.0) H 06/06/24 17:24 Albumin/Globulin Ratio 1.1 (0.9-2) 06/06/24 17:24 Lipase 10 U/L (11-82) L 06/06/24 17:24 Procalcitonin 0.13 ng/ml (0-0.5) 06/06/24 17:24 Urine Color Yellow 06/06/24 18:10 Urine Appearance Clear (Clear) 06/06/24 18:10 Urine pH 7.0 (4.5-7.5) 06/06/24 18:10 Ur Specific [place] 1.017 (1.000-1.030) 06/06/24 18:10 Urine Protein 1+ (Negative) H 06/06/24 18:10 Urine Glucose (UA) Negative (Negative) 06/06/24 18:10 Urine Ketones Negative (Negative) 06/06/24 18:10 Urine Blood 1+ (Negative) H 06/06/24 18:10 Urine Nitrite Negative (Negative) 06/06/24 18:10 Urine Bilirubin Negative (Negative) 06/06/24 18:10 Urine Urobilinogen Negative (Negative) 06/06/24 18:10 Ur Leukocyte Esterase Negative (Negative) 06/06/24 18:10 Urine WBC (Auto) 0-5 /hpf (0-5) 06/06/24 18:10 Urine RBC (Auto) 6-10 /hpf (0-2) H 06/06/24 18:10 U Hyaline Cast (Auto) 0-2 /lpf (0-2) 06/06/24 18:10 U Epithel Cells (Auto) 0-2 /hpf (0-2) 06/06/24 18:10 Urine Bacteria (Auto) None Seen (None Seen) 06/06/24 18:10 Impressions Abdomen/Pelvis CT 06/06/24 17:24 CT ABDOMEN and PELVIS with INTRAVENOUS CONTRAST HISTORY: Abdominal pain TECHNIQUE: CT abdomen and pelvis with contrast. IV CONTRAST: 100 mL of OMNIPAQUE 300 ENTERIC CONTRAST: Not Given COMPARISON: FINDINGS: LOWER CHEST: Mild cardiac enlargement. Coronary calcifications. LIVER: No focal lesion identified. Hepatic steatosis and hepatomegaly. GALLBLADDER/BILIARY: Unremarkable gallbladder. No abnormal biliary dilatation. SPLEEN: Unremarkable. PANCREAS: Unremarkable. ADRENALS: Unremarkable. KIDNEYS: Cortical cysts. No stones or hydronephrosis identified. PERITONEUM/RETROPERITONEUM. No lymphadenopathy by size criteria. No aortic aneurysm. GASTROINTESTINAL: No obstruction. Normal appendix. Multiple loops of small bowel demonstrate mild inflammatory dense wall thickening. There is mild gastric wall thickening as well. Colonic diverticulosis without evidence of diverticulitis. Small duodenal diverticula. REPRODUCTIVE: Enlarged prostate gland with coarse calcifications impinging upon the urinary bladder outlet. URINARY BLADDER: Moderately distended with circumferential wall thickening. ABDOMINAL Wall: Inflammatory changes in the right groin with small pockets of fluid and gas in the inguinal canal extending into the right scrotum. BONES: No acute findings. Right hip arthroplasty. IMPRESSION: Findings suggesting mild gastroenteritis. Normal appendix is identified. Prostamegaly enlarged, nodular prostate causing urinary bladder outlet obstruction. Inflammatory appearance of the urinary bladder could also be due to superimposed cystitis. Recommend correlation with urinalysis. Inflammatory changes in the right groin with small pockets of fluid and gas may represent postoperative changes from recent inguinal hernia repair. Please clinically correlate with direct inspection to exclude superimposed infection/early abscess formation. Electronically signed by Evens Gutierrez 06-06-2024 6:28 PM Chest X-Ray 06/06/24 17:24 EXAM: XR chest 1V portable CLINICAL HISTORY: Sepsis. TECHNIQUE: X-ray images of the chest were obtained in AP projection. COMPARISON: No prior studies available for comparison. FINDINGS: Pulmonary Parenchyma: Lungs are clear bilaterally. No evidence of consolidation, collapse, or focal opacities. No pulmonary nodules identified. Minimal blunting of both costophrenic angles, donating mild pleural effusion / pleural thickening. Heart and Mediastinum: Heart size and shape are normal. No mediastinal widening or masses. No hilar or mediastinal lymphadenopathy. LEDs are overlaying both chest modi Bony Thorax: Bony thorax appears intact without fractures or deformities. Soft Tissues: Soft tissues overlying the chest wall are unremarkable. IMPRESSION: 1. No acute cardiopulmonary abnormalities identified. 2. Minimal blunting of both costophrenic angles, donating mild pleural effusion / pleural thickening. Electronically signed by Leo Lira 06-06-2024 6:[address] 06/06/24 17:25 Clinical History: Confusion Technique: Axial computed tomography images were obtained of the brain without intravenous contrast. Findings: There is diffuse cerebral atrophy, within expected limits for the patient's age. Areas of decreased attenuation are seen within the periventricular white matter, likely representing chronic small vessel ischemic disease. There is no definite sign of acute or old infarction. No intracranial hemorrhage is evident. No definite mass lesion is seen on this noncontrast examination. There is no midline shift or other form of herniation. No hydrocephalus is seen. No fracture is identified. The orbits and the visualized paranasal sinuses appear unremarkable. The mastoid air cells appear clear. Impression: 1. Cerebral atrophy and chronic small vessel ischemic disease 2. Otherwise unremarkable noncontrast CT of the brain Electronically signed by Eduardo Motley 06-06-2024 6:15 PM Code Status & VTE Plan VTE Prophylaxis Plan VTE Prophylaxis will be ordered: Yes PG Care Time/CCT Total # of Minutes Spent Total Time Spent with Patient: Total time spent is greater than 50% in coordination of care (as documented) at patient's floor/unit and/or counseling patient: Coding Level of Care Code 75138 INT INP/OBS CARE 3/75MIN Diagnoses Nausea R11.0 Constipation K59.00 Electrolyte abnormality E87.8 Benign essential hypertension I10 Chronic gout without tophus, unspecified cause, unspecified site [id number] Gout etiology: unspecified cause Gout site: unspecified site Presence of tophus: without tophus Obstructive sleep apnea G47.33 (5) Chronic gout Gout etiology: unspecified cause Gout site: unspecified site Presence of tophus: without tophus Qualified Code(s): [id number].[id number] - Chronic gout, unspecified, without tophus (tophi)
--- NOTE | 2024-06-06 21:34 | Surgery Consultation ---
Date of Consultation June 06, 2024 Assessment & Plan (1) Postoperative nausea: Patient recently underwent open right inguinal hernia repair with mesh placement with Dr. Espinosa on 06/03. Patient states since surgery he has had increased nausea without any associated vomiting. He states he has not had a BM and did start taking MiraLAX this afternoon. The patient was worked up in the emergency department with elevated WBC and troponin levels along with hyponatremia and hypokalemia. CT imaging did show possible cystitis, gastroenteritis, and some post-operative changes in the right groin. Due to recent surgery, the patient was seen and evaluated this evening at bedside. He is nontoxic appearing and surgical site does not appear to be infected and incision is clean and dry with steri-strips in place. The patient is being admitted to the medical service however from a surgical standpoint, recommend the following: -Due to recent surgery, it is a possibility he could be developing a post- operative ileus and would recommend keeping the patient NPO for now with sips and ice chips. Will order a KUB for the AM to evaluate bowel-gas pattern. -WBC elevated at 21, IV abx OK from a surgical standpoint -Electrolyte replacement as needed -Ice at surgical site -Medical management per primary team, surgery will follow History of Present Illness Reason for Consultation: post-op wound check History of Present Illness The patient is a 79-year-old male who presented to the emergency department for complaints of nausea. The patient recently underwent an open right inguinal her trae repair with mesh placement on Sunday with Dr. Espinosa. The patient states since surgery his pain has been well controlled but he has had some increased nausea and started with hiccups. He denies any vomiting and has been able to eat. His who is at bedside states she called the outpatient clinic to discuss his symptoms and they did recommend starting MiraLAX. The patient did have one dose of this but states he has not helped with him having a bowel movement. The patient has not had a BM since surgery. The patient was ultimately worked up in the emergency department and was found to have an elevated WBC at 21, elevated troponin, hyponatremia and hypokalemia. His CT imaging had results of gastroenteritis, possible cystitis, and post-operative changes in the right groin. Due to recent surgery, the patient was seen and evaluated in the emergency department this evening. He is resting comfortably in bed and is nontoxic appearing. The patient states he continues to be nauseous however has improved with medication. The patient's surgical site was examined. His right groin and scrotum is noted to have some expected overlying ecchymosis however surgical incision is clean, dry and no signs of infection. Allergies Allergy/AdvReac Type Severity Reaction Status Date / Time animal dander Allergy Intermediate ITCHY Verified 06/06/24 18:51 EYES, SNEEZING, RUNNY NOSE, CONGESTION house dust Allergy Intermediate ITCHY Verified 06/06/24 18:51 EYES, SNEEZING, RUNNY NOSE, CONGESTION house dust mite Allergy Intermediate ITCHY Verified 06/06/24 18:51 EYES, SNEEZING, RUNNY NOSE, CONGESTION Penicillins Allergy Intermediate HIVES, Verified 06/06/24 18:51 ULCERATIONS OF MOUTH ragweed pollen Allergy Intermediate ITCHY Verified 06/06/24 18:51 EYES, SNEEZING, RUNNY NOSE, CONGESTION Sulfa (Sulfonamide Allergy Intermediate HIVES,ULCERATIONS Verified 06/06/24 18:51 Antibiotics) OF MOUTH weed pollen Allergy Intermediate ITCHY Verified 06/06/24 18:51 EYES, SNEEZING, RUNNY NOSE, CONGESTION shellfish derived AdvReac Severe GOUT FLARE Verified 06/06/24 18:51 UP Home Medications Medication Instructions Recorded Confirmed Type hydrocortisone 1 % topical cream 1 applic topical BID PRN skin 11/07/23 06/06/24 Rx irritation #28.35 grams allopurinol 300 mg tablet 300 mg PO DAILY PRN gout 05/21/24 06/06/24 History aspirin 81 mg capsule 81 mg PO QAM 05/21/24 06/06/24 History colchicine 0.6 mg capsule 0.6 mg PO QAM 05/21/24 06/06/24 History (Mitigare) lisinopril 5 mg tablet 5 mg PO QAM 05/21/24 06/06/24 History loratadine 10 mg tablet 10 mg PO QAM 05/21/24 06/06/24 History magnesium 250 mg tablet 250 mg PO QAM 05/21/24 06/06/24 History metoprolol succinate 100 mg 100 mg PO QAM 05/21/24 06/06/24 History tablet,extended release 24 hr potassium gluconate 550 mg (90 mg) 550 mg PO QAM 05/21/24 06/06/24 History tablet ascorbic acid (vitamin C) 250 mg 250 mg PO DAILY 06/03/24 06/06/24 History tablet (Vitamin C) oxycodone 5 mg tablet 5 - 10 mg (1 - 2 x 5 mg) PO 06/03/24 06/06/24 Rx .[id number] PRN pain, for initial therapy, max 6 tabs per day #15 tabs ondansetron 8 mg disintegrating 8 mg PO Q8H PRN nausea and 06/05/24 06/06/24 Rx tablet vomiting #10 tabs ketoconazole 2 % shampoo 1 applic topical DIRECTED 06/06/24 06/06/24 History Patient History Medical History ALBER (obstructive sleep apnea) CPAP Chronic gout Benign essential hypertension Hx of colonic polyp Surgical History H/O right inguinal hernia repair (06/03/24) Right Open Incarcerated Recurrent Inguinal Hernia Repair with Mesh(Right) - Angelito Espinosa DO History of anesthesia reaction severe cramps/dry heaves Hx of detached retina repair several History of cataract surgery b/l History of colonoscopy (2022) History of tonsillectomy and adenoidectomy History of inguinal hernia repair right 1967 History of cholecystectomy 1999 History of total hip replacement right Family History Brother Coronary heart disease Acute myocardial infarction Father Colon cancer, Onset Age: 60 of it metastatic to liver 62 Mother Stroke Hypertension Grandfather (Paternal) Myocardial infarction, Onset Age: 59 [place] Grandfather (Maternal) Myocardial infarction, Onset Age: 40 ND age 40 Grandmother (Maternal) Schizophrenia, Onset Age: 60 Denies family history of Ovarian cancer Prostate cancer Breast cancer Social History Smoking Status: Never smoker Second Hand Exposure: No; Do You Dip or Chew Tobacco: No; Hx Alcohol Use: No Hx Substance Use: No Preferred Language: Mac[place] Communication Ability: Effective Visual Impairment: Limited Hearing Ability: Normal Corporate Law Specialist Required: No Beliefs That Will Affect Care: None marital status: Current Living Situation: Spouse current occupational status: employed 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 How many Children do You have: 2 Feels Safe at Home: Yes Childhood Exposure to Second-Hand Smoke: No Diet: regular caffeine: Yes during the past year weight has: remained stable Dental Care, Regularly: Yes Physical Activity Frequency: Daily Seatbelt Use: always Sunscreen Use: Yes Assistive Devices: Glasses Review of Systems Review of Systems: All systems reviewed & are unremarkable except as noted in HPI & below Physical Exam Constitutional: WD/WN, vitals as above Respiratory: normal respiratory effort, lungs clear to auscultation Cardiovascular: RRR, no murmur, no edema Gastrointestinal (Abdomen): Percussion/Palpation: abdomen soft; abdomen nontender, no guarding, abdomen not rigid and abdomen not firm right groin with surgical incision and steri-strips in place with overlying ecchymosis. No apparent signs of infection. +appropriate TTP over the site. Results & Data Vital Signs (Past 12 Hours) Vital Signs Temp Pulse Pulse Resp BP BP Pulse Ox 06/06/24 21:12 72 06/06/24 21:00 75 20 186/106 H 94 06/06/24 20:46 71 19 218/122 H 94 06/06/24 20:15 74 15 196/122 H 95 06/06/24 20:00 76 17 210/134 H 94 06/06/24 19:30 76 20 221/132 H 94 06/06/24 19:00 72 17 212/133 H 94 06/06/24 19:00 36.6 C 71 18 212/133 H 94 06/06/24 18:37 71 20 196/111 H 94 06/06/24 18:03 73 18 199/102 H 98 06/06/24 17:34 95 06/06/24 17:24 67 06/06/24 17:21 67 20 224/121 H 96 06/06/24 17:21 98 06/06/24 17:00 36.6 C 67 18 225/110 H 95 O2 Del Method 06/06/24 21:12 06/06/24 21:00 Room Air 06/06/24 20:46 Room Air 06/06/24 20:15 Room Air 06/06/24 20:00 Room Air 06/06/24 19:30 Room Air 06/06/24 19:00 Room Air 06/06/24 19:00 Room Air 06/06/24 18:37 Room Air 06/06/24 18:03 Room Air 06/06/24 17:34 Room Air 06/06/24 17:24 06/06/24 17:21 Room Air 06/06/24 17:21 Room Air 06/06/24 17:00 Room Air Diagnostic Findings CT ABDOMEN and PELVIS with INTRAVENOUS CONTRAST HISTORY: Abdominal pain TECHNIQUE: CT abdomen and pelvis with contrast. IV CONTRAST: 100 mL of OMNIPAQUE 300 ENTERIC CONTRAST: Not Given COMPARISON: FINDINGS: LOWER CHEST: Mild cardiac enlargement. Coronary calcifications. LIVER: No focal lesion identified. Hepatic steatosis and hepatomegaly. GALLBLADDER/BILIARY: Unremarkable gallbladder. No abnormal biliary dilatation. SPLEEN: Unremarkable. PANCREAS: Unremarkable. ADRENALS: Unremarkable. KIDNEYS: Cortical cysts. No stones or hydronephrosis identified. PERITONEUM/RETROPERITONEUM. No lymphadenopathy by size criteria. No aortic aneurysm. GASTROINTESTINAL: No obstruction. Normal appendix. Multiple loops of small bowel demonstrate mild inflammatory dense wall thickening. There is mild gastric wall thickening as well. Colonic diverticulosis without evidence of diverticulitis. Small duodenal diverticula. REPRODUCTIVE: Enlarged prostate gland with coarse calcifications impinging upon the urinary bladder outlet. URINARY BLADDER: Moderately distended with circumferential wall thickening. ABDOMINAL Wall: Inflammatory changes in the right groin with small pockets of fluid and gas in the inguinal canal extending into the right scrotum. BONES: No acute findings. Right hip arthroplasty. IMPRESSION: Findings suggesting mild gastroenteritis. Normal appendix is identified. Prostamegaly enlarged, nodular prostate causing urinary bladder outlet obstruction. Inflammatory appearance of the urinary bladder could also be due to superimposed cystitis. Recommend correlation with urinalysis. Inflammatory changes in the right groin with small pockets of fluid and gas may represent postoperative changes from recent inguinal hernia repair. Please clinically correlate with direct inspection to exclude superimposed infection/early abscess formation. PG Care Time/CCT Total # of Minutes Spent Total Time Spent with Patient: Total time spent is greater than 50% in coordination of care (as documented) at patient's floor/unit and/or counseling patient: [place] [address] OP VST EST LOW 20 MIN Patient Type Established History Problem Focused Exam Problem Focused Medical Decision Making Straight Forward Diagnoses Postoperative nausea R11.0; Z98.890
[2024-06-06] MEDS: hydrALAZINE 10 MG TAB PO STA (22:18)
[2024-06-06] MEDS ORDERED: ACETAMINOPHEN 325 MG TAB PO PRN (22:21)
[2024-06-06] MEDS ORDERED: ONDANSETRON INJ 2 MG/ML 2 ML VIAL IV PRN (22:21)
[2024-06-06] MEDS ORDERED: POLYETHYLENE (MIRALAX) 17 GM PACK PO PRN (22:21)
[2024-06-06 22:39] LABS: Phosphorus 3.1 mg/dl (2.5-4.9)
[2024-06-06] MEDS: POTASSIUM CHLORIDE CRTAB 20 MEQ TABCR PO STA (23:07)
[2024-06-06] MEDS: CALCIUM GLUCONATE 1,000 MG/60 ML BAG IV SCH (23:08)
[2024-06-06] MEDS: MAGNESIUM SULFATE / D5W 1 GM/100 ML BAG IV SCH (23:11)
[2024-06-06] MEDS: bisacodyL 10 MG SUPP PR STA (23:11)
[2024-06-06] MEDS: LACTATED RINGER'S 1,000 ML IV SCH (23:13)
[2024-06-07 04:56] LABS: Hemoglobin 15.6 g/dl (14.0-18.0); Mean Corpuscular Hemoglobin 30.1 pg (25.0-34.0); Mean Corpuscular Hgb Conc 37.1 g/dL (32.0-36.0); Mean Corpuscular Volume 80.9 fL (80.0-100.0); Mean Platelet Volume 10.5 fL (9.4-12.4); Platelet Count 300 K/uL (130-400); RDW Coefficient of Variation 12.8 % (11.5-14.5); RDW Standard Deviation 37.4 fL (36.4-46.3); Red Blood Count 5.19 M/uL (4.70-6.10); White Blood Count 20.43 K/ul (4.8-10.8)
[2024-06-07 05:12] LABS: Albumin Level 3.3 gm/dl (3.4-5.0); BUN Creatinine Ratio 19.2 (10-20); Bilirubin Direct 0.3 mg/dl (0-0.2); Bilirubin,Total 1.4 mg/dl (0.2-1.0); Calcium 8.6 mg/dl (8.6-10.3); Magnesium 2.1 mg/dl (1.7-2.4); Potassium 2.8 mmol/L (3.5-5.1); Total Protein 6.4 gm/dl (6.0-8.3)
--- NOTE | 2024-06-07 06:18 | Surgery Progress Note ---
Date of Service June 07, 2024 Assessment & Plan (1) Postoperative nausea: Plan: -Patient states he feels well this morning compared to last evening. Denies any ongoing nausea overnight or this morning. -KUB pending this AM. If no evidence of ileus/SBO could consider advancing diet slowly. -Continue stool softeners -WBC still elevated at 20 this morning, IV abx -Patient still hypokalemic and hyponatremic this morning; electrolyte replacement -Ice at surgical site -Pain medication as needed Admission and Anticipated Discharge Date Admission Date: June 06, 2024 Subjective Patient seen and evaluated this morning, patient states he feels better than last evening He denies any ongoing nausea or any episodes of vomiting overnight Denies any abdominal pain or pain at surgical site AM labs still with elevated WBC at 20 however he has been afebrile. Physical Exam Constitutional: WD/WN, vitals as above Respiratory: normal respiratory effort, lungs clear to auscultation Cardiovascular: RRR, no murmur, no edema Gastrointestinal (Abdomen): Percussion/Palpation: abdomen soft; abdomen nontender, no guarding, abdomen not rigid and abdomen not firm +right groin with surgical incision and steri-strips in place with overlying ecchymosis. Nontender to palpation. No apparent signs of infection Results & Data Vital Signs (Past 12 Hours) Vital Signs Temp Pulse Pulse Resp BP BP Pulse Ox 06/07/24 06:00 67 16 156/95 H 97 06/07/24 05:00 67 16 152/96 H 94 06/07/24 01:28 36.6 C 66 20 147/81 H 97 06/07/24 01:00 64 18 162/89 H 94 06/07/24 00:00 69 20 185/109 H 94 06/06/24 22:48 70 06/06/24 21:12 72 06/06/24 21:00 75 20 186/106 H 94 06/06/24 20:46 71 19 218/122 H 94 06/06/24 20:15 74 15 196/122 H 95 06/06/24 20:00 76 17 210/134 H 94 06/06/24 19:30 76 20 221/132 H 94 06/06/24 19:00 72 17 212/133 H 94 06/06/24 19:00 36.6 C 71 18 212/133 H 94 06/06/24 18:37 71 20 196/111 H 94 O2 Del Method O2 Flow Rate 06/07/24 06:00 Room Air 06/07/24 05:00 Room Air 06/07/24 01:28 Nasal Cannula 2 06/07/24 01:00 Nasal Cannula 2 06/07/24 00:00 Room Air 06/06/24 22:48 06/06/24 21:12 06/06/24 21:00 Room Air 06/06/24 20:46 Room Air 06/06/24 20:15 Room Air 06/06/24 20:00 Room Air 06/06/24 19:30 Room Air 06/06/24 19:00 Room Air 06/06/24 19:00 Room Air 06/06/24 18:37 Room Air PG Care Time/CCT Total # of Minutes Spent Total Time Spent with Patient: Total time spent is greater than 50% in coordination of care (as documented) at patient's floor/unit and/or counseling patient: [place] [address] Post Operative Follow-Up Patient Type Established Medical Decision Making Straight Forward Diagnoses Postoperative nausea R11.0; Z98.890
[2024-06-07] MEDS: DOCUSATE SODIUM/SENNA 50/8.6MG TAB PO SCH (08:26)
[2024-06-07] MEDS: POTASSIUM CHLORIDE CRTAB 20 MEQ TABCR PO STA (08:26)
[2024-06-07] MEDS: lisinopril 5 MG TAB PO SCH (08:26)
[2024-06-07] MEDS: ENOXAPARIN INJ 40 MG/0.4 ML SYR SQ SCH (08:27)
[2024-06-07] MEDS: METOPROLOL SUCC 50MG EXT REL TAB PO SCH (08:27)
[2024-06-07] MEDS: ASPIRIN 81 MG ECTAB PO SCH (08:27)
[2024-06-07] MEDS: AMPICILLIN/SULBACTAM SOD 1,500 MG/100 ML BAG IV SCH (08:29)
--- NOTE | 2024-06-07 08:33 | XRay Report ---
EXAM: XR KUB/Abdomen 1 view CLINICAL HISTORY: evaluate for possible ileus vs SBO TECHNIQUE: X-ray images of the abdomen were obtained in supine and upright positions. COMPARISON: No prior studies available for comparison. FINDINGS: Gas Pattern: Gas pattern within the abdomen is normal. No evidence of bowel obstruction or distention. Soft Tissues: Contrast media in the urinary bladder were noted Surgical clips from cholecystectomy were noted Soft tissues of the abdomen appear normal without evidence of masses or calcifications. Liver, spleen, and kidneys are of normal size and position. A right total hip replacement was noted. No evidence of loosening or break. IMPRESSION: No acute abnormalities identified. Electronically signed by Leo Lira 06-07-2024 08:33 AM
--- NOTE | 2024-06-07 11:37 | Hospitalist Progress Note ---
Date of Service June 07, 2024 Assessment & Plan (1) Constipation: (2) Recurrent unilateral inguinal hernia with incarceration: (3) Benign essential hypertension: (4) Chronic gout: (5) Obstructive sleep apnea: Plan 79yo male s/p right inguinal hernia repair presenting with nausea, constipation. Patient's pain at the surgical site is minimal - he has been taking PRN Tylenol infrequently. No BM since prior to surgery. No fever, chills or other signs of infection #Nausea -Zofan PRN -Nausea improving, tolerated clear diet without issue; advanced to regular diet -WBCs: 20, no obvious source of infection, stop Unasyn and consider further work up if WBCs continue to rise #Constipation -Dulcolax 10mg AL daily -Docusate/Senna q AM -Miralax PRN -Constipation resolved, consider home regimen of Miralax until multiple consistent soft stools -KUB without evidence for obstruction #Electrolyte abnormality -Check PO4 -KCL 40mEq PO -Mg x 2gm IV -Calcium gluconate x 2gm IV -Continue IVF - LR at 100mL/hr x 2L -Repeat chemistry in AM #Hypertension -Continue Lisinopril 5mg po qAM -Continue metoprolol 100mg po qAM -Hydralazine 10mg po TID as needed for BP > 180/110 #Chronic Gout -Continue Colchicine #ALBER -CPAP qHS Admission and Anticipated Discharge Date Admission Date: June 06, 2024 Supervising Physician Co-Signing Physician Notes I personally examined the patient and verified all blackburn points of history and exam, discussed case, and agree with decision making with Dr Dowell Feeling okay. Eating better. Had bowel movements. No focal symptoms of infection. Vitals noted, in general he is awake and alert pleasant no distress. HEENT normocephalic atraumatic mucous membranes moist. Breathing unlabored no accessory muscle use good effort. Skin without rashes pallor or icterus. Labs and diagnostics noted. Symptomatic constipationnow improving. Hyponatremia/hypokalemiaprobably due to poor p.o. intakeanticipate improvement leukocytosisappears to have been given dexamethasone during surgery probably stress response, steroid response, bothno focal signs or symptoms of infection on oxygenhe notes he has sleep apnea normally wears CPAP and the oxygen was started last night, we are all expecting it to be able to be discontinued while he is awake. otherwise as above Subjective Oscar Gu was seen resting comfortably in the ED this morning. Patient reports that he had 3 bowel movements over night and in the morning and reports that these stools were normal consistency and large in volume. Patient denies abdominal pain, nausea, vomiting, fever and chills. Patient does endorse some fatigue and weakness when going to and from the bathroom but denies lightheadedness/dizziness. Patient is afebrile and hemodynamically stable. Physical Exam Physical Exam: General: patient resting comfortably, NAD, non-toxic in appearance, answers questions appropriately. Skin: warm, dry, intact HEENT: NC/AT, anicteric sclera, conjunctiva without injection, moist mucus membranes. Heart: +S1/S2, regular, no m/r/g Lungs: equal air entry bilaterally, no rales/rhonchi/wheezes Abd: +BS, soft, NT/ND Ext: warm, no clubbing/cyanosis or edema Neuro: nonfocal, speech intact, no facial droop, moving all extremities. Results & Data Results & Data Vital Signs (Past 12 Hours) Vital Signs Temp Pulse Pulse Resp BP Pulse Ox O2 Del Method 06/07/24 11:24 64 20 133/80 96 Nasal Cannula 06/07/24 10:27 67 20 129/78 98 Room Air 06/07/24 07:16 65 06/07/24 07:15 Nasal Cannula 06/07/24 07:14 68 22 132/86 95 Nasal Cannula 06/07/24 07:11 68 22 132/86 95 Nasal Cannula 06/07/24 06:30 76 16 137/88 94 Nasal Cannula 06/07/24 06:00 67 16 156/95 H 97 Nasal Cannula 06/07/24 05:00 67 16 152/96 H 94 Nasal Cannula 06/07/24 01:28 36.6 C 66 20 147/81 H 97 Nasal Cannula 06/07/24 01:00 64 18 162/89 H 94 Nasal Cannula 06/07/24 00:00 69 20 185/109 H 94 Room Air O2 Flow Rate 06/07/24 11:24 4 06/07/24 10:27 06/07/24 07:16 06/07/24 07:15 4 06/07/24 07:14 4 06/07/24 07:11 4 06/07/24 06:30 4 06/07/24 06:00 4 06/07/24 05:00 4 06/07/24 01:28 2 06/07/24 01:00 2 06/07/24 00:00 Resident Activity Tracking Resident Involvement: Resident Care Provided Care Provided: Adult Hospital Medicine (4) Chronic gout Gout site: unspecified site Gout etiology: unspecified cause Presence of tophus: without tophus Qualified Code(s): [id number].[id number] - Chronic gout, unspecified, without tophus (tophi)
--- NOTE | 2024-06-07 14:31 | Billing Data ---
Date of Service June 07, 2024 Coding Level of Care Code 34109 SUB INP/OBS CARE
--- NOTE | 2024-06-07 14:32 | Billing Data ---
Date of Service June 07, 2024 Coding Level of Care Code 80014 SUB INP/OBS CARE
[2024-06-08 06:07] LABS: Basophils # (auto) 0.06 K/uL (0.00-0.20); Basophils % (auto) 0.4 %; Eosinophils # (auto) 0.23 K/uL (0.00-0.50); Eosinophils % (auto) 1.5 %; Immature Granulocytes # (auto) 0.12 K/uL (0.01-0.20); Immature Granulocytes % (auto) 0.8 %; Lymphocytes # (auto) 1.14 K/uL (1.20-3.40); Lymphocytes % (auto) 7.5 %; Mean Corpuscular Hemoglobin 29.2 pg (25.0-34.0); Mean Corpuscular Hgb Conc 34.9 g/dL (32.0-36.0); Mean Corpuscular Volume 83.8 fL (80.0-100.0); Mean Platelet Volume 10.4 fL (9.4-12.4); Monocytes # (auto) 1.81 K/uL (0.11-0.59); Monocytes % (auto) 11.9 %; Neutrophils # (auto) 11.85 K/uL (1.40-6.50); Neutrophils % (auto) 77.9 %; Platelet Count 282 K/uL (130-400); RDW Coefficient of Variation 12.9 % (11.5-14.5); RDW Standard Deviation 39.3 fL (36.4-46.3); Red Blood Count 5.13 M/uL (4.70-6.10); White Blood Count 15.21 K/ul (4.8-10.8)
--- NOTE | 2024-06-08 06:28 | Surgery Progress Note ---
Date of Service June 08, 2024 Assessment & Plan (1) Postoperative nausea: Plan: -Patient states he feels well this morning and he has been tolerating a diet since yesterday without any issues. Denies N/V -Continue stool softeners -WBC downtrending today to 15 -Continue to ice surgical site -Medical management per primary team Admission and Anticipated Discharge Date Admission Date: June 06, 2024 Subjective Patient states he is doing well this morning. Continues to deny abdominal pain, nausea or vomiting KUB yesterday with no signs of ileus or SBO and was given a regular diet Physical Exam Constitutional: WD/WN, vitals as above Respiratory: normal respiratory effort, lungs clear to auscultation Cardiovascular: RRR, no murmur, no edema Gastrointestinal (Abdomen): Percussion/Palpation: abdomen soft; abdomen nontender, no guarding, abdomen not rigid and abdomen not firm +right groin with surgical incision and steri-strips in place with overlying ecchymosis which has improved. Nontender to palpation.No apparent signs of infection Results & Data Vital Signs (Past 12 Hours) Vital Signs Temp Pulse Pulse Resp BP Pulse Ox O2 Del Method 06/08/24 04:00 36.7 C 83 20 125/76 98 Nasal Cannula 06/07/24 23:00 36.5 C 65 18 116/72 97 Nasal Cannula 06/07/24 22:00 58 L 06/07/24 20:06 Nasal Cannula 06/07/24 19:30 36.7 C 60 18 123/72 96 Nasal Cannula O2 Flow Rate 06/08/24 04:00 3 06/07/24 23:00 3 06/07/24 22:00 06/07/24 20:06 3 06/07/24 19:30 3 PG Care Time/CCT Total # of Minutes Spent Total Time Spent with Patient: Total time spent is greater than 50% in coordination of care (as documented) at patient's floor/unit and/or counseling patient: [place] [address] Post Operative Follow-Up Patient Type Established Diagnoses Postoperative nausea R11.0; Z98.890
[2024-06-08 06:37] LABS: BUN Creatinine Ratio 26.7 (10-20); Calcium 8.7 mg/dl (8.6-10.3); Potassium 3.4 mmol/L (3.5-5.1)
[2024-06-08 07:52] VITALS: RESP 16
--- NOTE | 2024-06-08 07:55 | Discharge Summary ---
Date of Service June 08, 2024 Admission HPI Per Admitting Provider Oscar Gu is a 79yo male with history of ALBER, HTN, recent repair of incarcerated right inguinal hernia on 06/03/[address] Espinosa presenting with overall feeling of weakness, fatigue as well as nausea, constipation and hiccups. Patient reports ongoing nausea since having his surgery on 06/03. He has had dry heaving and ongoing hiccups. Last BM was on 06/03 prior to having surgery. He is passing flatus without difficulty. He notes some mild abdominal distention but no pain. Patient has been taking tylenol as needed for pain, no opioids. Has had poor appetite and decreased oral intake. No additional complaints. In the ER he is afebrile, hypertensive ER Course: Zofran NSS Admission Exam Per Admitting Provider General: patient resting comfortably, NAD, non-toxic in appearance, AA&O x 4 Skin: warm, dry, intact, no rashes or lesions HEENT: NC/AT, PERRL, EOMI, anicteric sclera, conjunctiva without injection, external ear normal to inspection and nontender, nares patent, moist mucus membranes, dentition intact, no oropharyngeal lesions, neck supple, trachea midline, no LAD, no thyromegaly, no JVD Heart: +S1/S2, regular, no m/r/g Lungs: equal air entry bilaterally, no rales/rhonchi/wheezes Abd: +BS, soft, mildly distended, diminished bowel sounds, no masses/organomegaly/ascites Right inguinal hernia site with steri strips in place, c/d/i, bruising in the area, no drainage or erythema Ext: warm, 2+ pulses in UE/LE bilaterally, no clubbing/cyanosis or edema Neuro: nonfocal, patient AA&O x 4, speech intact, no facial droop, moving all extremities on command with equal strength 5/5 Principal Diagnosis Constipation s/p open R. incarcerated inguinal hernia repair Discharge Exam General: patient resting comfortably, NAD, non-toxic in appearance, answers questions appropriately. Skin: warm, dry, intact HEENT: NC/AT, anicteric sclera, conjunctiva without injection, moist mucus membranes. Heart: +S1/S2, regular, no m/r/g Lungs: equal air entry bilaterally, no rales/rhonchi/wheezes Abd: +BS, soft, NT/ND Ext: warm, no clubbing/cyanosis or edema Neuro: nonfocal, speech intact, no facial droop, moving all extremities. Discharge Data Allergies Allergy/AdvReac Type Severity Reaction Status Date / Time animal dander Allergy Intermediate ITCHY Verified 06/06/24 18:51 EYES, SNEEZING, RUNNY NOSE, CONGESTION house dust Allergy Intermediate ITCHY Verified 06/06/24 18:51 EYES, SNEEZING, RUNNY NOSE, CONGESTION house dust mite Allergy Intermediate ITCHY Verified 06/06/24 18:51 EYES, SNEEZING, RUNNY NOSE, CONGESTION Penicillins Allergy Intermediate HIVES, Verified 06/06/24 18:51 ULCERATIONS OF MOUTH ragweed pollen Allergy Intermediate ITCHY Verified 06/06/24 18:51 EYES, SNEEZING, RUNNY NOSE, CONGESTION Sulfa (Sulfonamide Allergy Intermediate HIVES,ULCERATIONS Verified 06/06/24 18: 51 Antibiotics) OF MOUTH weed pollen Allergy Intermediate ITCHY Verified 06/06/24 18:51 EYES, SNEEZING, RUNNY NOSE, CONGESTION shellfish derived AdvReac Severe GOUT FLARE Verified 06/06/24 18:51 UP Consultations 06/06/24 19:04 Consult General Surgery Stat ED Decision to Admit Stat Ordered Studies 06/06/24 17:24 CT abd pelvis IV con only Stat 06/06/24 17:25 CT head/brain wo con Stat Hospital Course (1) Constipation: (2) Recurrent unilateral inguinal hernia with incarceration: (3) Benign essential hypertension: (4) Chronic gout: (5) Obstructive sleep apnea: (6) Leucocytosis: (7) Electrolyte abnormality: Plan 79yo male s/p right inguinal hernia repair presenting with nausea, constipation. Patient's pain at the surgical site is minimal - he has been taking PRN Tylenol infrequently. No BM since prior to surgery. No fever, chills or other signs of infection #Nausea -Zofan PRN -Nausea improving, tolerated clear diet without issue; advanced to regular diet -WBCs: 20, no obvious source of infection, stop Unasyn and consider further work up if WBCs continue to rise #Constipation -Dulcolax 10mg MI daily -Docusate/Senna q AM -Miralax PRN -Constipation resolved, consider home regimen of Miralax until multiple consistent soft stools -KUB without evidence for obstruction #Electrolyte abnormality -Check PO4 -KCL 40mEq PO -Mg x 2gm IV -Calcium gluconate x 2gm IV -Continue IVF - LR at 100mL/hr x 2L -Repeat chemistry in AM #Hypertension -Continue Lisinopril 5mg po qAM -Continue metoprolol 100mg po qAM -Hydralazine 10mg po TID as needed for BP > 180/110 #Chronic Gout -Continue Colchicine #ALBER -CPAP qHS Total Time Total Time Spent Total Time Spent (In Minutes): <30 Discharge Plan Discharge Items Patient Disposition: Home - Self-Care Reason For Visit: CONSTIPATION Discharge Diagnosis: Constipation 2/ open R. incarcerated inguinal hernia repair Activity: Per Instructions section Non-emergency contact: Primary Care Provider Call non-emergency contact if: your symptoms worsen and your pain is not controlled Follow-up/Referrals: Ras Cintron MD [Primary Care Provider] - 06/17/24 8:30 am Diet: Regular Ambulatory Orders: Basic Metabolic Panel (Routine) Timeframe: 1 Week Location: Determined by Patient Ordered By: Osmar Dowell Complete Blood Count with Diff (Routine) Timeframe: 1 Week Location: Determined by Patient Ordered By: Osmar Dowell Addtl Attending Provider Instructions: You were admitted to the hospital for Constipation after your recent open R. incarcerated hernia repair. You were treated with bowel stimulants and stool softeners, particularly Docusate, senna, and Miralax. After presenting to the hospital your constipation quickly resolved and you were able to have 3 bowel movements of normal consistency. While in the hospital you did not endorse worsening abdominal pain or increased distention or tenderness. You did mention that initially you were very nauseous but this quickly passed after being given a dose of IV Zofran in the ED, and this did not reoccur. While in the ED, your blood counts were also checked and they showed an increase in your white blood cells (WBCs). These cells are part of your immune system and an increase can mean that your body is trying to fight an active infection. However, many other causes can also increase these numbers and particularly the steroids that you were given during surgery could sustain an increase in your WBCs. These WBCs were monitored during your stay and no obvious source of infection was found when looking through the imaging of your abdomen, urine studies, and chest x-ray and labs. Thus the antibiotics that were being given for a potential bacterial infection were stopped yesterday and your white blood cell counts also began to drop back to normal this morning. An X-ray called a KUB was also completed of your stomach to make sure that there were no obstructions in your bowel causing your constipation, and no evidence of this was seen. To check on your WBC count outside of the hospital a CBC lab has been ordered for you to complete in approximately 1 week. Additionally, as your electrolyte levels were slightly abnormal and your sodium level was low, likely due to poor oral intake, fluids and a clear diet without regular food until yesterday; a BMP has been ordered to complete in 1 week to make sure these electrolytes are normalizing. It is a good idea to get both of these completed or Sunday of next week, and you do not have to fast for these labs. For constipation it will be a good idea to use a stool softener like Miralax for chronic constipation. Please use this medication 1-2 times per day until your frequency of stool has normalized and the consistency of your stool is soft and formed, like susie. It will be important to follow-up with surgery in the following weeks and keep any appointments that you have as scheduled. Likely you will have your abdomen imaged once again to make sure that your abdomen is healing properly after your recent surgery. A discharge summary will be sent to your primary care physician to ensure continuity of care. Please bring this discharge summary with you to your next office appointment so that your provider can review it at that time. Follow-up appointments: Make a follow-up appointment with your PCP within the next week. It is very important that you follow up with them shortly after discharge from the hospital. Please follow-up with surgery as scheduled in the coming weeks Medications: Your medication list has been reviewed and reconciled upon discharge to ensure accuracy and continuity of care. An updated list of all your medications is included with your hospital discharge paperwork. Please review this list closely, and make note of any changes. Take your medications as instructed; do not skip a dose of your medicines. Make sure all of your doctors know every medicine you are taking (including gaae-hec-dbkjvqu medicines, vitamins, and supplements). Call your primary care provider before taking any new medicines (including ratd-adb-ibxmajy medicines, vitamins, and supplements), because some of these may interact with your current medications, or may make your symptoms worse. Tell your primary care provider if you cannot afford your medications. CONTACT YOUR PRIMARY CARE PROVIDER if you experience any of the following: Difficulty following your treatment plan, or difficulty taking medications CALL 911 OR GO TO THE EMERGENCY DEPARTMENT if you experience any of the following: Sudden, severe abdominal pain or nausea/vomiting Severe chest pain, or chest pain that radiates (moves) to your jaw or arm Sudden, severe shortness of breath or difficulty breathing Thank you for allowing us to participate in your care. Pending Studies at Discharge: No Stand-Alone Forms: My [facility], Smoking Cessation Medications and DC Order Prescriptions: Continued ondansetron 8 mg tablet,disintegrating 8 mg PO Q8H PRN (Reason: nausea and vomiting) Qty: 10 0RF hydrocortisone 1 % cream 1 applic topical BID PRN (Reason: skin irritation) Qty: 28.35 2RF Rx Instructions: avoid around the eyes or rubbing eyes after use aspirin 81 mg Capsule 81 mg PO QAM metoprolol succinate 100 mg tablet extended release 24 hr 100 mg PO QAM allopurinol 300 mg tablet 300 mg PO DAILY PRN (Reason: gout) magnesium 250 mg tablet 250 mg PO QAM lisinopril 5 mg tablet 5 mg PO QAM loratadine 10 mg tablet 10 mg PO QAM potassium gluconate 550 mg (90 mg) tablet 550 mg PO QAM colchicine [Mitigare] 0.6 mg capsule 0.6 mg PO QAM ascorbic acid (vitamin C) [Vitamin C] 250 mg Tablet 250 mg PO DAILY oxycodone 5 mg tablet 5 - 10 mg PO .[id number] PRN (Reason: pain, for initial therapy, max 6 tabs per day) Qty: 15 0RF ketoconazole 2 % shampoo 1 applic topical DIRECTED Discharge Orders: Discharge Order (Routine); Ordered 06/08/24 Ordered By: Osmar Dowell Admission Data Admit Date/Time: 06/06/24 20:20 Attending Provider: Nithin Levine Admit Provider: Rachna Hogan Primary Care Provider: Ras Cintron Other Providers: Angelito Espinosa; Rachna Hogan Other Interventions: Discharge Summary Assessment (RN) Last Done: 06/08/24 11:14 Supervising Physician Co-Signing Physician Notes I personally examined the patient and verified all blackburn points of history and exam, discussed case, and agree with decision making with Dr Dowell Feeling good. Eating okay. Getting around well without weakness or shortness of breath. Feels up to going home.Vitals noted, in general he is awake and alert pleasant no distress. HEENT normocephalic atraumatic mucous membranes moist. Breathing unlabored no accessory muscle use good effort. Skin without rashes pallor or icterus. Labs and diagnostics noted. Symptomatic constipationnow improving. Safe/stable for home, MiraLAX bowel regimen Hyponatremia/hypokalemiaprobably due to poor p.o. intake improving. No need for further hospitalization. Basic metabolic panel in a few days to a week at the most to ensure resolution leukocytosisappears to have been given dexamethasone during surgery probably stress response, steroid response, both still no focal signs or symptoms of infection, antibiotics were stopped yesterday, white count improving. Safe/stable for home. CBC in a few days to a week to ensure resolution as well. otherwise as above Resident Activity Tracking Resident Involvement: Resident Care Provided Care Provided: Adult Hospital Medicine
[2024-06-08 11:22] VITALS: BP 119/73; PULSE 89; TEMP 98.4; O2SAT 94
--- NOTE | 2024-06-08 12:56 | Electrocardiogram Report ---
Test Reason : Blood Pressure : */* mmHG Vent. Rate : 67 BPM Atrial Rate : 67 BPM P-R Int : 188 ms QRS Dur : 106 ms QT Int : 438 ms P-R-T Axes : 35 31 63 degrees QTcB Int : 462 ms Normal sinus rhythm Normal ECG When compared with ECG of 04-Jun-2008 11:31, HR has increased No significant change Confirmed by Vic Phillips ([id number]) on 06/08/2024 12:56:03 PM Referred By: REFERRED SELF Confirmed By: Vic Phillips
--- NOTE | 2024-06-08 14:56 | Billing Data ---
Date of Service June 08, 2024 Coding Level of Care Code 64319 IN/OBS DISCH 30 MIN/LESS
== END 2024-06-08 13:08 | disposition home or self-care (01) | DRG 351 ==
LOC: ED 16:49 → SUATTDRO 20:20 → EDINP 20:20 → 2N 22:17

== ENCOUNTER 2024-06-09 03:40 | Inpatient (IN) ==
[2024-06-09 04:37] LABS: Appearance Urine Clear (Clear); Bacteria Urine Automated None Seen (None Seen); Bilirubin Urine Negative (Negative); Blood Urine Trace (Negative); Cast Urine Automated 0-2 /lpf (0-2); Color Urine Yellow; Epithelial Cell Urine Auto 0-2 /hpf (0-2); Glucose Urine UA Negative (Negative); Ketones Urine Trace (Negative); Leukocyte Esterase Urine 1+ (Negative); Nitrite Urine Negative (Negative); Protein Urine 1+ (Negative); Specific Gravity Urine 1.017 (1.000-1.030); Urobilinogen Urine Negative (Negative); WBC Urine Automated 0-5 /hpf (0-5)
[2024-06-09 04:55] LABS: Basophils # (auto) 0.05 K/uL (0.00-0.20); Basophils % (auto) 0.3 %; Eosinophils # (auto) 0.01 K/uL (0.00-0.50); Eosinophils % (auto) 0.1 %; Hematocrit (blood only) 45.6 % (42.0-52.0); Hemoglobin 16.1 g/dl (14.0-18.0); Immature Granulocytes # (auto) 0.24 K/uL (0.01-0.20); Immature Granulocytes % (auto) 1.3 %; Lymphocytes # (auto) 0.56 K/uL (1.20-3.40); Lymphocytes % (auto) 3.1 %; Mean Corpuscular Hemoglobin 29.3 pg (25.0-34.0); Mean Corpuscular Hgb Conc 35.3 g/dL (32.0-36.0); Mean Corpuscular Volume 83.1 fL (80.0-100.0); Mean Platelet Volume 10.5 fL (9.4-12.4); Monocytes # (auto) 0.96 K/uL (0.11-0.59); Monocytes % (auto) 5.3 %; Neutrophils # (auto) 16.38 K/uL (1.40-6.50); Neutrophils % (auto) 89.9 %; Platelet Count 358 K/uL (130-400); RDW Coefficient of Variation 12.7 % (11.5-14.5); RDW Standard Deviation 38.3 fL (36.4-46.3); Red Blood Count 5.49 M/uL (4.70-6.10)
[2024-06-09] MEDS: ONDANSETRON INJ 2 MG/ML 2 ML VIAL IV STA (04:55)
[2024-06-09] MEDS: SODIUM CHLORIDE 0.9% 500 ML IV ONE (04:56)
[2024-06-09 05:11] LABS: Alanine Aminotransferase 9 U/L (7-52); Albumin Globulin Ratio 1.1 (0.9-2); Alkaline Phosphatase 68 U/L (34-104); Anion Gap 10 (3-11); Aspartate Aminotransferase 15 U/L (13-39); Bilirubin,Total 1.4 mg/dl (0.2-1.0); Blood Urea Nitrogen 29 mg/dl (6-23); Calcium 9.1 mg/dl (8.6-10.3); Carbon Dioxide 27 mmol/L (21-32); Chloride 91 mmol/L (98-107); Globulin 3.5 gm/dl (2.5-4.0); Glucose 146 mg/dl (70-99(Fasting)); Lipase 12 U/L (11-82); Potassium 3.3 mmol/L (3.5-5.1); Sodium 128 mmol/L (136-145); Total Protein 7.5 gm/dl (6.0-8.3)
--- NOTE | 2024-06-09 05:44 | XRay Report ---
EXAM: XR abdomen 2V w PA chest CLINICAL HISTORY: For small bowel obstruction. TECHNIQUE: X-ray images of the abdomen were obtained in Anteroposterior (AP) projection. COMPARISON: X-ray dated 06/07/2024 for comparison. FINDINGS: Gas Pattern: The small bowel loops are prominent, and air-distended with maximum caliber reaching 3 cm. Progressive course. Soft Tissues: Soft tissues of the abdomen appear normal without evidence of masses or calcifications. The liver, spleen, and kidneys are of normal size and position. Status post cholecystectomy with surgical clips. 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 Right total hip replacement prosthesis. IMPRESSION: The small bowel loops are prominent, air-distended with maximum caliber reaching 3 cm. Progressive course. Picture of ongoing/early small bowel obstruction/ileus. Suggest clinical correlation and follow-up imaging. Can advise CT for further work up. Electronically signed by Leo Lira 06-09-2024 05:43 AM
--- NOTE | 2024-06-09 06:04 | Emergency Department Note ---
Impression & Plan Acute urinary retention, Hyponatremia, Weakness, Overflow incontinence Admit to the [facility] ED Provider Note NAME: AMARI DUNN AGE: 79 SEX: Male INFORMANT: Patient ED PROVIDER(S): Yareli Raza DO CHIEF COMPLAINT: nausea PLAN: Disposition: Admit to the [facility] MEDICAL DECISION MAKING: this is a 79-year-old male patient who was just discharged from the hospital at noontime yesterday. Upon arrival at home, he felt increasingly nauseated and weak. He became Incontinent of urine and noted that his legs were mottled. On physical exam, the patient appears to be dehydrated. His abdomen is extremely distended but seems to be concentrated on the right lower quadrant of his abdomen. Laboratory studies reveal moderate leukocytosis with a white count of 18.2. H&H are normal. Lactate is negative. Sodium is low again at 128. Potassium is slightly low at 3.3. BUN is elevated again at 29. Creatinine is 1.1. Chloride is low again at 91. Glucose is 146. CT scan of the abdomen and pelvis reveals significantly distended bladder. This would account for the patient's overflow incontinence. Care/management discussed with: dev manager and [facility] Triage Nursing notes: reviewed and agree with them. Vital Signs: reviewed and remarkable for hypertension Additional History obtained from: Patient's is at the bedside Prior/ Outside/ External records reviewed: none Differential Diagnosis: Recurrent hyponatremia, dehydration, constipation, acute renal failure, [facility], independently interpreted by me: ECG: Normal sinus rhythm at a rate of [address] segment elevation or signs of ischemia. Cardiac Monitoring: Normal sinus rhythm at a rate of 68 Imaging studies: CT scan of the abdomen/pelvis: As per [facility] HPI: 79 year old Male arrives for evaluation of nausea and weakness. Patient had been discharged from the hospital yesterday at noon after and inguinal hernia repair. Upon arriving at home, the patient had increasing nausea and weakness. He was noted to be incontinent of urine. PAST MEDICAL HISTORY: See Below, PAST SURGICAL HISTORY: See Below, SOCIAL HISTORY: See Below, HOME MEDICATIONS: See list ALLERGIES: See list VITALS: See Below PHYSICAL EXAMINATION: HEENT: Head - normocephalic and atraumatic Pupils are equal, round, and reactive to light. Extraocular eye muscles are intact, and sclera are anicteric. Nose -dry nasal mucosa without discharge. Mouth - extremely dry buccal mucosa with extremely dry lips. Oropharynx is nonerythematous and there is no tonsillar exudate or edema noted. Neck: Supple; no JVD or nuchal rigidity Heart: Regular rate and rhythm. There is a normal S1 and S2 with no murmurs, clicks, or gallops appreciated. Lungs: Clear to auscultation bilaterally with no wheezes, rales, or rhonchi. Abdomen: Significant abdominal distention which seems to be localized in the right lower quadrant of the abdomen. Surgical site in the right inguinal canal has Steri-Strips in place with surrounding ecchymosis but no signs of erythema or warmth concerning for infection. There are no palpable pulsatile masses or hepatosplenomegaly. There is no guarding, rigidity, or rebound noted. Extremities: No evidence of cyanosis, clubbing, or edema. There are easily palpable peripheral pulses. Skin: Pale, warm and dry with poor turgor and no rashes. Emergency Department course: The patient was evaluated in room C-7. A complete history and physical was performed. An order was placed for continuous cardiac monitoring. The patient was in a normal sinus rhythm at a rate of 68. Laboratory studies were drawn as above. A twelve-lead EKG was obtained as described above. The patient was bolused with IV normal saline solution and given a dose of IV Zofran for his nausea. Previous inpatient medical records were reviewed. Patient did have significant abdominal distention which seem to be concentrated in the right lower quadrant of his abdomen. He describes having problems with constipation while he was hospitalized for his inguinal hernia repair. He went for CT scan of the abdomen/pelvis which showed significant urinary retention. I discussed the case with the [facility] Hospitalist and they will evaluate for further inpatient care as the patient is significantly hyponatremic again. Urinary catheter was placed. Past Med/Surg History Problem List (Updated 06/09/24 @ 15:09 by Yareli Raza DO) Overflow incontinence (Acute) Weakness (Acute) Hyponatremia (Acute) Acute urinary retention (Acute) Urinary retention SBO (small bowel obstruction) Leucocytosis Electrolyte abnormality Constipation Nausea Postoperative nausea (Acute) Elevated troponin (Acute) Hyponatremia (Acute) Encounter for pre-operative examination Arthritis Recurrent unilateral inguinal hernia with incarceration Right groin mass Right inguinal hernia Adenomatous polyp of colon Carpal tunnel syndrome, bilateral upper limbs Therapeutic drug monitoring Gout Diastasis recti Actinic keratoses (Acute) Ankle pain, right (Acute) Benign essential hypertension (Acute) Chronic gout (Acute) Obstructive sleep apnea (Acute) Seborrheic dermatitis (Acute) Vitiligo (Acute) Medical History ALBER (obstructive sleep apnea) CPAP Chronic gout Benign essential hypertension Hx of colonic polyp Surgical History H/O right inguinal hernia repair (06/03/24) Right Open Incarcerated Recurrent Inguinal Hernia Repair with Mesh(Right) - Angelito Espinosa DO History of anesthesia reaction severe cramps/dry heaves Hx of detached retina repair several History of cataract surgery b/l History of colonoscopy (2022) History of tonsillectomy and adenoidectomy History of inguinal hernia repair right 1968 History of cholecystectomy 2000 History of total hip replacement right Family History Brother Coronary heart disease Acute myocardial infarction Father Colon cancer, Onset Age: 60 of it metastatic to liver 62 Mother Stroke Hypertension Grandfather (Paternal) Myocardial infarction, Onset Age: 59 [place] Grandfather (Maternal) Myocardial infarction, Onset Age: 40 [place] age 40 Grandmother (Maternal) Schizophrenia, Onset Age: 60 Denies family history of Ovarian cancer Prostate cancer Breast cancer Social History Smoking Status: Smoker, status unknown Second Hand Exposure: No; Do You Dip or Chew Tobacco: No; Hx Alcohol Use: No Hx Substance Use: No Preferred Language: French Communication Ability: Effective Visual Impairment: Limited Hearing Ability: Normal Channel Development Manager Required: No Beliefs That Will Affect Care: None marital status: Current Living Situation: Spouse Current Living Situation Comment: Lives with in home current occupational status: employed 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 How many Children do You have: 2 Feels Safe at Home: Yes Childhood Exposure to Second-Hand Smoke: No Diet: regular caffeine: Yes during the past year weight has: remained stable Dental Care, Regularly: Yes Physical Activity Frequency: Daily Seatbelt Use: always Sunscreen Use: Yes Assistive Devices: BiPap, Glasses, Oxygen - at Night and Walker Allergies Allergies Allergy/AdvReac Type Severity Reaction Status Date / Time animal dander Allergy Intermediate ITCHY Verified 06/06/24 18:51 EYES, SNEEZING, RUNNY NOSE, CONGESTION house dust Allergy Intermediate ITCHY Verified 06/06/24 18:51 EYES, SNEEZING, RUNNY NOSE, CONGESTION house dust mite Allergy Intermediate ITCHY Verified 06/06/24 18:51 EYES, SNEEZING, RUNNY NOSE, CONGESTION Penicillins Allergy Intermediate HIVES, Verified 06/06/24 18:51 ULCERATIONS OF MOUTH ragweed pollen Allergy Intermediate ITCHY Verified 06/06/24 18:51 EYES, SNEEZING, RUNNY NOSE, CONGESTION Sulfa (Sulfonamide Allergy Intermediate HIVES,ULCERATIONS Verified 06/06/24 18:51 Antibiotics) OF MOUTH weed pollen Allergy Intermediate ITCHY Verified 06/06/24 18:51 EYES, SNEEZING, RUNNY NOSE, CONGESTION shellfish derived AdvReac Severe GOUT FLARE Verified 06/06/24 18:51 UP Home Meds Home Medications Medication Instructions Recorded Confirmed allopurinol 300 mg tablet 300 mg PO DAILY PRN gout 05/21/24 06/09/24 aspirin 81 mg capsule 81 mg PO QAM 05/21/24 06/09/24 colchicine 0.6 mg capsule 0.6 mg PO QAM 05/21/24 06/09/24 (Mitigare) lisinopril 5 mg tablet 5 mg PO QAM 05/21/24 06/09/24 loratadine 10 mg tablet 10 mg PO QAM 05/21/24 06/09/24 magnesium 250 mg tablet 250 mg PO QAM 05/21/24 06/09/24 metoprolol succinate 100 mg 100 mg PO QAM 05/21/24 06/09/24 tablet,extended release 24 hr potassium gluconate 550 mg (90 mg) 550 mg PO QAM 05/21/24 06/09/24 tablet ascorbic acid (vitamin C) 250 mg 250 mg PO DAILY 06/03/24 06/09/24 tablet (Vitamin C) ketoconazole 2 % shampoo 1 applic topical DIRECTED 06/06/24 06/09/24 Previous Rx's Medication Instructions Recorded hydrocortisone 1 % topical cream 1 applic topical BID PRN skin 11/07/23 irritation #28.35 grams oxycodone 5 mg tablet 5 - 10 mg (1 - 2 x 5 mg) PO 06/03/24 .[id number] PRN pain, for initial therapy, max 6 tabs per day #15 tabs ondansetron 8 mg disintegrating 8 mg PO Q8H PRN nausea and 06/05/24 tablet vomiting #10 tabs Results & Data (ED) Vital Signs Vital Signs - 24 hr 06/09/24 03:44 06/09/24 03:59 06/09/24 04:10 Temperature 36.1 C L Temperature Source Temporal Artery Scan Pulse Rate 74 78 Pulse Rate [Apical] 74 Pulse Rate from SpO2 Sensor Respiratory Rate 16 20 Blood Pressure 200/118 H Blood Pressure [Right Arm] 203/121 H Blood Pressure Mean 145 Blood Pressure Mean [Right Arm] 148 Pulse Oximetry 96 Oxygen Delivery Method Room Air Sepsis Recent Fever Within 48 Hours No Sepsis New/Unexplained Change in Mental Status No Sepsis Action Taken by Nursing No Action Required 06/09/24 05:00 06/09/24 05:24 06/09/24 05:58 Temperature Temperature Source Pulse Rate 69 77 Pulse Rate [Apical] 75 Pulse Rate from SpO2 Sensor 68 75 Respiratory Rate 16 13 20 Blood Pressure 221/116 H 219/118 H Blood Pressure [Right Arm] 229/129 H Blood Pressure Mean 151 151 Blood Pressure Mean [Right Arm] 162 Pulse Oximetry 96 96 96 Oxygen Delivery Method Room Air Room Air Room Air Sepsis Recent Fever Within 48 Hours Sepsis New/Unexplained Change in Mental Status Sepsis Action Taken by Nursing Laboratory Data 06/09/24 04:27 06/09/24 04:27 Lab Results 06/09/24 06/09/24 06/09/24 Range/Units 03:55 04:27 05:24 WBC 18.20 H (4.8-10.8) K/ul RBC 5.49 (4.70-6.10) M/uL Hgb 16.1 (14.0-18.0) g/dl Hct 45.6 (42.0-52.0) % MCV 83.1 (80.0-100.0) fL MCH 29.3 (25.0-34.0) pg MCHC 35.3 (32.0-36.0) g/dL RDW Std Deviation 38.3 (36.4-46.3) fL RDW Coeff of [place] 12.7 (11.5-14.5) % Plt Count 358 (130-400) K/uL MPV 10.5 (9.4-12.4) fL Immature Gran % (Auto) 1.3 % Neut % (Auto) 89.9 % Lymph % (Auto) 3.1 % [place] % (Auto) 5.3 % Eos % (Auto) 0.1 % Baso % (Auto) 0.3 % Neut # (Auto) 16.38 H (1.40-6.50) K/uL Lymph # (Auto) 0.56 L (1.20-3.40) K/uL [place] # (Auto) 0.96 H (0.11-0.59) K/uL Eos # (Auto) 0.01 (0.00-0.50) K/uL Baso # (Auto) 0.05 (0.00-0.20) K/uL Immature Gran # (Auto) 0.24 H (0.01-0.20) K/uL Sodium 128 L (136-145) mmol/L Potassium 3.3 L (3.5-5.1) mmol/L Chloride 91 L (98-107) mmol/L Carbon Dioxide 27 (21-32) mmol/L Anion Gap 10 (3-11) BUN 29 H (6-23) mg/dl Creatinine 1.16 (0.6-1.4) mg/dl Est Cr Clr Drug Dosing Not Reportable eGFR 64.87 BUN/Creatinine Ratio 25.0 H (10-20) Glucose 146 H (70-99(Fasting)) mg/dl Lactate 1.5 (0.4-2.0) mmol/L Calcium 9.1 (8.6-10.3) mg/dl Magnesium 1.9 (1.7-2.4) mg/dl Total Bilirubin 1.4 H (0.2-1.0) mg/dl AST 15 (13-39) U/L ALT 9 (7-52) U/L Alkaline Phosphatase 68 (34-104) U/L C-Reactive Protein 15.01 H (0-0.5) mg/dl Total Protein 7.5 (6.0-8.3) gm/dl Albumin 4.0 (3.4-5.0) gm/dl Globulin 3.5 (2.5-4.0) gm/dl Albumin/Globulin Ratio 1.1 (0.9-2) Lipase 12 (11-82) U/L Procalcitonin 0.22 (0-0.5) ng/ml Urine Color Yellow Urine Appearance Clear (Clear) Urine pH 6.0 (4.5-7.5) Ur Specific [place] 1.017 (1.000-1.030) Urine Protein 1+ H (Negative) Urine Glucose (UA) Negative (Negative) Urine Ketones Trace H (Negative) Urine Blood Trace H (Negative) Urine Nitrite Negative (Negative) Urine Bilirubin Negative (Negative) Urine Urobilinogen Negative (Negative) Ur Leukocyte Esterase 1+ H (Negative) Urine WBC (Auto) 0-5 (0-5) /hpf Urine RBC (Auto) 6-10 H (0-2) /hpf U Hyaline Cast (Auto) 0-2 (0-2) /lpf U Epithel Cells (Auto) 0-2 (0-2) /hpf Urine Bacteria (Auto) None Seen (None Seen) Administered Medications Aspirin (Aspirin 81 Mg Ectab) 81 mg PO [facility] Stop: 07/09/24 09:29 Last Admin: 06/09/24 10:19 Dose: 81 mg Documented By: DELFIN Colchicine (Colchicine 0.6 Mg Tab) 0.6 mg PO [facility] Stop: 07/09/24 09:44 Last Admin: 06/09/24 10:19 Dose: 0.6 mg Documented By: DELFIN Docusate Sodium (Docusate Sodium 100 Mg Cap) 100 mg PO BID [facility] Stop: 07/09/24 09:18 Last Admin: 06/09/24 10:19 Dose: 100 mg Documented By: DELFIN Lactated Ringer's (Lr) 1,000 mls @ 100 mls/hr IV .Q10H [facility] Stop: 06/10/24 05:18 Last Admin: 06/09/24 10:19 Dose: 100 mls/hr Documented By: DELFIN Metoprolol Succinate (Metoprolol Succ 50mg Ext Rel Tab) [facility] [place]: 07/09/24 09:18 Last Admin: 06/09/24 10:19 Dose: 100 mg Documented By: DELFIN Ondansetron HCl (Ondansetron Inj 2 Mg/Ml 2 Ml Vial) 4 mg IV Q6H PRN PRN Reason: Nausea And Vomiting Stop: 07/09/24 09:18 Last Admin: 06/09/24 10:19 Dose: 4 mg Documented By: DELFIN Polyethylene Glycol (Polyethylene (Miralax) 17 Gm Pack) 17 gm PO DAILY PRN PRN Reason: Constipation Stop: 07/09/24 09:18 Last Admin: 06/09/24 10:19 Dose: 17 gm Documented By: DELFIN Polyethylene Glycol (Polyethylene (Miralax) 17 Gm Pack) 17 gm PO TID [facility] Stop: 07/09/24 13:59 Last Admin: 06/09/24 13:13 Dose: 17 gm Documented By: DELFIN Discontinued Medications Hydralazine HCl (Hydralazine Hcl 25 Mg Tab) 25 mg PO NOW STA Stop: 06/09/24 05:56 Last Admin: 06/09/24 06:11 Dose: 25 mg Documented By: NICHOLE Sodium Chloride (Nss) 500 mls @ 999 mls/hr IV .Q31M ONE Stop: 06/09/24 04:43 Last Infusion: 06/09/24 05:52 Dose: Infused Documented By: Admin: 06/09/24 04:56 Dose: 999 mls/hr Documented By: TYE Ondansetron HCl (Ondansetron Inj 2 Mg/Ml 2 Ml Vial) 4 mg IV NOW STA Stop: 06/09/24 04:14 Last Admin: 06/09/24 04:55 Dose: 4 mg Documented By: TYE Imaging Data Radiologist's Impression: Chest/Abdomen X-ray 06/09/24 04:13 EXAM: XR abdomen 2V w PA chest CLINICAL HISTORY: For small bowel obstruction. TECHNIQUE: X-ray images of the abdomen were obtained in Anteroposterior (AP) projection. COMPARISON: X-ray dated 06/07/2024 for comparison. FINDINGS: Gas Pattern: The small bowel loops are prominent, and air-distended with maximum caliber reaching 3 cm. Progressive course. Soft Tissues: Soft tissues of the abdomen appear normal without evidence of masses or calcifications. The liver, spleen, and kidneys are of normal size and position. Status post cholecystectomy with surgical clips. 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 Right total hip replacement prosthesis. IMPRESSION: The small bowel loops are prominent, air-distended with maximum caliber reaching 3 cm. Progressive course. Picture of ongoing/early small bowel obstruction/ileus. Suggest clinical correlation and follow-up imaging. Can advise CT for further work up. Electronically signed by Leo Lira 06-09-2024 05:43 AM Abdomen/Pelvis CT 06/09/24 05:08 EXAM: CT abd pelvis wo con CLINICAL HISTORY: Evaluate for small bowel obstruction. S/p R inguinal repair on 06/03. TECHNIQUE: Non-contrast CT of the abdomen and pelvis was performed, with the following protocol: axial images, and reconstructed coronal and sagittal images. One of the following dose reduction techniques was utilized for this exam: Automated exposure control, adjustment of the mA and/or kV according to patient size, and use of iterative reconstruction. DLP: 1635.2 mGy.cm. COMPARISON: 06/06/2024. FINDINGS: Abdomen: Liver: Normal in size, shape, and density. No focal lesions, cysts, or masses were identified. Gallbladder and Biliary System: Status postcholecystectomy. Unchanged. The common bile duct is unremarkable. Pancreas: Pancreatic head, body, and tail are visualized and appear normal in size and density. No pancreatic masses or calcifications were noted. Spleen: Normal in size, shape, and density. No splenic lesions or masses were identified. Appendix: The appendix is normal in size without falguni-appendiceal fat stranding and without an appendicolith. No evidence of appendiceal abscess or perforation. Kidneys and Adrenal Glands: Mild bilateral dilatation of the pelvicalyceal system of both kidneys and both ureters, likely passive due to an over-distended urinary bladder. A few small hypodense renal cysts. Non-specific falguni-nephric fat stranding. Unchanged. Both kidneys are normal in size, shape, and position. Cortical thickness is within normal limits. No renal calculi. Adrenal glands are unremarkable. Abdominal Aorta and Vessels: Mild atherosclerotic changes of the abdominal aorta and major branches. Pelvis: The bladder is distended, measuring about 15 x 16 x 18 cm. Normal in contour and wall thickness. No intraluminal lesions. Prostate: Enlarged, measures about 6 x 5 x 4 cm. Spots of central calcifications. Unchanged. Seminal Vesicles: Normal appearance without abnormal enlargement or mass. Peritoneal and Retroperitoneal Structures: No free fluid or abnormal fluid collections were identified within the abdomen or pelvis. No lymphadenopathy was noted. Bowel: Prominent caliber of the small bowel loops, up to 2.8 cm maximum caliber. Small bowel loops feces sign is noted, which indicates hypoperistalsis. Mild colonic fecal loading. A few distal colon diverticula. No signs of inflammatory changes. Bones and Soft Tissues: Status post recent right inguinal hernia repair with post-surgical changes. Unchanged. Multiple prominent inguinal lymph nodes, the largest of, measured about 1.2 x 0.7 cm in the right side. Likely reactionary. Unchanged. Degenerative changes of the visualized skeleton. Right hip prosthesis. No hardware complications. No fractures or abnormal masses were identified. IMPRESSION: 1. Mild air-dilation of the small bowel loops, measuring up to 2.8 cm at maximum. A small bowel feces sign is present, suggesting hypoperistalsis. However, there are no definitive signs of small bowel obstruction. No definite transition point. Findings are suggestive of ileus. Clinical correlation and follow-up is recommended. (new findings) 2. A distended urinary bladder is suggestive of urinary retention. Please correlate clinically. 3. Enlarged prostate with central calcifications 4. Status post recent right inguinal hernia repair; unchanged. 5. Otherwise, no significant interval changes. Electronically signed by Leo Lira 06-09-2024 07:12 AM Discharge Plan Visit Data Chief Complaint: Urinary Symptoms Stated Complaint: URINARY SYMPTOMS ED Provider: Yareli Raza Discharge Problem: Acute urinary retention, Hyponatremia, Weakness, Overflow incontinence Patient Disposition: Admitted As Inpatient Discharge Instructions Interventions: ED Discharge Assessment Last Done: 06/09/24 08:19
[2024-06-09] MEDS: hydrALAZINE HCL 25 MG TAB PO STA (06:11)
--- NOTE | 2024-06-09 06:27 | History & Physical Report ---
Date of Service June 09, 2024 Assessment & Plan (1) Urinary retention: (2) SBO (small bowel obstruction): (3) Gout: (4) Benign essential hypertension: (5) Obstructive sleep apnea: (6) Nausea: Plan 79yo male presenting with nausea, generalized weakness, difficulty urinating. Patient recently with right inguinal hernia repair. #Urinary retention - CT of the abdomen performed, appears to have very distended bladder, formal read is pending. Sylvester catheter placed in the ER with return of 2L urine. -Maintain sylvester catheter -Monitor I/O, electrolytes and renal function -LR at 100mL/hr x 2L #SBO - X-ray suggests possible early SBO. CT of the abdomen formal read is pending -Keep NPO for now -Tylenol and Oxycodone PRN -Zofran PRN -LR at 100mL/hr #Nausea - likely multifactorial -Maintain sylvester catheter -Bowel regimen with Colace BID and Miralax PRN -Zofran PRN -Awaiting formal CT read #Gout -Continue Colchicine #Hypertension -Continue Metoprolol 100mg po qAM -Hold Lisinopril for now -Hydralazine PRN given in ER - elevated blood pressure most likely secondary to urinary retention in part -Monitor #ALBER -CPAP qHS History of Present Illness Chief Complaint: nausea Primary Care Provider: Ras Cintron MD Oscar Gu is a 79yo male with recent repair of incarcerated right inguinal hernia, recent admission for constipation with discharge yesterday afternoon 06/08/24 returning with persistent nausea and generalized weakness and fatigue. He reports slight difficulty urinating and leaking of urine. Otherwise denies fever, chills, chest pain, palpitations, cough, SOB, abdominal pain. He has had poor appetite and decreased oral intake. Has had several small BMs since returning home. Allergies Allergy/AdvReac Type Severity Reaction Status Date / Time animal dander Allergy Intermediate ITCHY Verified 06/06/24 18:51 EYES, SNEEZING, RUNNY NOSE, CONGESTION house dust Allergy Intermediate ITCHY Verified 06/06/24 18:51 EYES, SNEEZING, RUNNY NOSE, CONGESTION house dust mite Allergy Intermediate ITCHY Verified 06/06/24 18:51 EYES, SNEEZING, RUNNY NOSE, CONGESTION Penicillins Allergy Intermediate HIVES, Verified 06/06/24 18:51 ULCERATIONS OF MOUTH ragweed pollen Allergy Intermediate ITCHY Verified 06/06/24 18:51 EYES, SNEEZING, RUNNY NOSE, CONGESTION Sulfa (Sulfonamide Allergy Intermediate HIVES,ULCERATIONS Verified 06/06/24 18:51 Antibiotics) OF MOUTH weed pollen Allergy Intermediate ITCHY Verified 06/06/24 18:51 EYES, SNEEZING, RUNNY NOSE, CONGESTION shellfish derived AdvReac Severe GOUT FLARE Verified 06/06/24 18:51 UP Home Medications Medication Instructions Recorded Confirmed Type hydrocortisone 1 % topical cream 1 applic topical BID PRN skin 11/07/23 06/06/24 Rx irritation #28.35 grams allopurinol 300 mg tablet 300 mg PO DAILY PRN gout 05/21/24 06/06/24 History aspirin 81 mg capsule 81 mg PO QAM 05/21/24 06/06/24 History colchicine 0.6 mg capsule 0.6 mg PO QAM 05/21/24 06/06/24 History (Mitigare) lisinopril 5 mg tablet 5 mg PO QAM 05/21/24 06/06/24 History loratadine 10 mg tablet 10 mg PO QAM 05/21/24 06/06/24 History magnesium 250 mg tablet 250 mg PO QAM 05/21/24 06/06/24 History metoprolol succinate 100 mg 100 mg PO QAM 05/21/24 06/06/24 History tablet,extended release 24 hr potassium gluconate 550 mg (90 mg) 550 mg PO QAM 05/21/24 06/06/24 History tablet ascorbic acid (vitamin C) 250 mg 250 mg PO DAILY 06/03/24 06/06/24 History tablet (Vitamin C) oxycodone 5 mg tablet 5 - 10 mg (1 - 2 x 5 mg) PO 06/03/24 06/06/24 Rx .[id number] PRN pain, for initial therapy, max 6 tabs per day #15 tabs ondansetron 8 mg disintegrating 8 mg PO Q8H PRN nausea and 06/05/24 06/06/24 Rx tablet vomiting #10 tabs ketoconazole 2 % shampoo 1 applic topical DIRECTED 06/06/24 06/06/24 History Past Med/Surg History Problem List (Updated 06/09/24 @ 06:57 by Rachna Hogan DO) Urinary retention SBO (small bowel obstruction) Leucocytosis Electrolyte abnormality Constipation Nausea Postoperative nausea (Acute) Elevated troponin (Acute) Hyponatremia (Acute) Encounter for pre-operative examination Arthritis Recurrent unilateral inguinal hernia with incarceration Right groin mass Right inguinal hernia Adenomatous polyp of colon Carpal tunnel syndrome, bilateral upper limbs Therapeutic drug monitoring Gout Diastasis recti Actinic keratoses (Acute) Ankle pain, right (Acute) Benign essential hypertension (Acute) Chronic gout (Acute) Obstructive sleep apnea (Acute) Seborrheic dermatitis (Acute) Vitiligo (Acute) Medical History ALBER (obstructive sleep apnea) CPAP Chronic gout Benign essential hypertension Hx of colonic polyp Surgical History H/O right inguinal hernia repair (06/03/24) Right Open Incarcerated Recurrent Inguinal Hernia Repair with Mesh(Right) - Angelito Espinosa DO History of anesthesia reaction severe cramps/dry heaves Hx of detached retina repair several History of cataract surgery b/l History of colonoscopy (2022) History of tonsillectomy and adenoidectomy History of inguinal hernia repair right 1968 History of cholecystectomy 2000 History of total hip replacement right Family History Brother Coronary heart disease Acute myocardial infarction Father Colon cancer, Onset Age: 60 of it metastatic to liver 62 Mother Stroke Hypertension Grandfather (Paternal) Myocardial infarction, Onset Age: 59 [place] Grandfather (Maternal) Myocardial infarction, Onset Age: 40 [place] age 40 Grandmother (Maternal) Schizophrenia, Onset Age: 60 Denies family history of Ovarian cancer Prostate cancer Breast cancer Social History Smoking Status: Never smoker Second Hand Exposure: No; Do You Dip or Chew Tobacco: No; Hx Alcohol Use: No Hx Substance Use: No Preferred Language: [place]ian Communication Ability: Effective Visual Impairment: Limited Hearing Ability: Normal Canvas Cutter Hand Required: No Beliefs That Will Affect Care: None marital status: Current Living Situation: Spouse Current Living Situation Comment: Lives with in home current occupational status: employed 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 How many Children do You have: 2 Feels Safe at Home: Yes Childhood Exposure to Second-Hand Smoke: No Diet: regular caffeine: Yes during the past year weight has: remained stable Dental Care, Regularly: Yes Physical Activity Frequency: Daily Seatbelt Use: always Sunscreen Use: Yes Assistive Devices: BiPap and Oxygen - at Night Review of Systems Review of Systems: All systems reviewed & are unremarkable except as noted in HPI & below Physical Exam Physical Exam: General: patient resting comfortably, NAD, non-toxic in appearance, AA&O x 4 Skin: warm, dry, intact, no rashes or lesions HEENT: NC/AT, PERRL, EOMI, anicteric sclera, conjunctiva without injection, external ear normal to inspection and nontender, nares patent, moist mucus membranes, dentition intact, no oropharyngeal lesions, neck supple, trachea midline, no LAD, no thyromegaly, no JVD Heart: +S1/S2, regular, no m/r/g Lungs: equal air entry bilaterally, no rales/rhonchi/wheezes Abd: +BS, soft, distended and firm in the lower abdomen Ext: warm, 2+ pulses in UE/LE bilaterally, no clubbing/cyanosis or edema Hernia site with steri strips in place, bruising, no clear evidence of infection Neuro: nonfocal, patient AA&O x 4, speech intact, no facial droop, moving all extremities on command with equal strength 5/5 Results & Data Results & Data Vital Signs (Past 12 Hours) Vital Signs Temp Pulse Pulse Resp BP BP Pulse Ox 06/09/24 06:23 76 22 218/116 H 95 06/09/24 05:58 75 20 229/129 H 96 06/09/24 05:24 77 13 219/118 H 96 06/09/24 05:00 69 16 221/116 H 96 06/09/24 04:10 74 20 203/121 H 06/09/24 03:59 78 06/09/24 03:44 36.1 C L 74 16 200/118 H 96 O2 Del Method 06/09/24 06:23 Room Air 06/09/24 05:58 Room Air 06/09/24 05:24 Room Air 06/09/24 05:00 Room Air 06/09/24 04:10 06/09/24 03:59 06/09/24 03:44 Room Air Laboratory Results Laboratory Results WBC 18.20 K/ul (4.8-10.8) H 06/09/24 04: RBC 5.49 M/uL (4.70-6.10) 06/09/24 04: Hgb 16.1 g/dl (14.0-18.0) 06/09/24 04: Hct 45.6 % (42.0-52.0) 06/09/24 04: MCV 83.1 fL (80.0-100.0) 06/09/24 04: MCH 29.3 pg (25.0-34.0) 06/09/24 04: MCHC 35.3 g/dL (32.0-36.0) 06/09/24 04: RDW Std Deviation 38.3 fL (36.4-46.3) 06/09/24 04: RDW Coeff of [place] 12.7 % (11.5-14.5) 06/09/24 04: Plt Count 358 K/uL (130-400) 06/09/24 04: MPV 10.5 fL (9.4-12.4) 06/09/24 04: Immature Gran % (Auto) 1.3 % 06/09/24 04: Neut % (Auto) 89.9 % 06/09/24 04: Lymph % (Auto) 3.1 % 06/09/24 04:27 Pepin % (Auto) 5.3 % 06/09/24 04: Eos % (Auto) 0.1 % 06/09/24 04: Baso % (Auto) 0.3 % 06/09/24 04: Neut # (Auto) 16.38 K/uL (1.40-6.50) H 06/09/24 04:27 Lymph # (Auto) 0.56 K/uL (1.20-3.40) L 06/09/24 04:27 Pepin # (Auto) 0.96 K/uL (0.11-0.59) H 06/09/24 04:27 Eos # (Auto) 0.01 K/uL (0.00-0.50) 06/09/24 04: Baso # (Auto) 0.05 K/uL (0.00-0.20) 06/09/24 04:27 Immature Gran # (Auto) 0.24 K/uL (0.01-0.20) H 06/09/24 04:27 Sodium 128 mmol/L (136-145) L 06/09/24 04:27 Potassium 3.3 mmol/L (3.5-5.1) L 06/09/24 04:27 Chloride 91 mmol/L (98-107) L 06/09/24 04:27 Carbon Dioxide 27 mmol/L (21-32) 06/09/24 04:27 Anion Gap 10 (3-11) 06/09/24 04:27 BUN 29 mg/dl (6-23) H 06/09/24 04:27 Creatinine 1.16 mg/dl (0.6-1.4) 06/09/24 04:27 Est Cr Clr Drug Dosing Not Reportable 06/09/24 04:27 eGFR 64.87 06/09/24 04:27 BUN/Creatinine Ratio 25.0 (10-20) H 06/09/24 04:27 Glucose 146 mg/dl (70-99(Fasting)) H 06/09/24 04:27 Lactate 1.5 mmol/L (0.4-2.0) 06/09/24 05:24 Calcium 9.1 mg/dl (8.6-10.3) 06/09/24 04:27 Total Bilirubin 1.4 mg/dl (0.2-1.0) H 06/09/24 04:27 AST 15 U/L (13-39) 06/09/24 04:27 ALT 9 U/L (7-52) 06/09/24 04:27 Alkaline Phosphatase 68 U/L (34-104) 06/09/24 04:27 Total Protein 7.5 gm/dl (6.0-8.3) 06/09/24 04:27 Albumin 4.0 gm/dl (3.4-5.0) 06/09/24 04:27 Globulin 3.5 gm/dl (2.5-4.0) 06/09/24 04:27 Albumin/Globulin Ratio 1.1 (0.9-2) 06/09/24 04:27 Lipase 12 U/L (11-82) 06/09/24 04:27 Procalcitonin 0.22 ng/ml (0-0.5) 06/09/24 04:27 Urine Color Yellow 06/09/24 03:55 Urine Appearance Clear (Clear) 06/09/24 03:55 Urine pH 6.0 (4.5-7.5) 06/09/24 03:55 Ur Specific [place] 1.017 (1.000-1.030) 06/09/24 03:55 Urine Protein 1+ (Negative) H 06/09/24 03:55 Urine Glucose (UA) Negative (Negative) 06/09/24 03:55 Urine Ketones Trace (Negative) H 06/09/24 03:55 Urine Blood Trace (Negative) H 06/09/24 03:55 Urine Nitrite Negative (Negative) 06/09/24 03:55 Urine Bilirubin Negative (Negative) 06/09/24 03:55 Urine Urobilinogen Negative (Negative) 06/09/24 03:55 Ur Leukocyte Esterase 1+ (Negative) H 06/09/24 03:55 Urine WBC (Auto) 0-5 /hpf (0-5) 06/09/24 03:55 Urine RBC (Auto) 6-10 /hpf (0-2) H 06/09/24 03:55 U Hyaline Cast (Auto) 0-2 /lpf (0-2) 06/09/24 03:55 U Epithel Cells (Auto) 0-2 /hpf (0-2) 06/09/24 03:55 Urine Bacteria (Auto) None Seen (None Seen) 06/09/24 03:55 Impressions Chest/Abdomen X-ray 06/09/24 04:13 EXAM: XR abdomen 2V w PA chest CLINICAL HISTORY: For small bowel obstruction. TECHNIQUE: X-ray images of the abdomen were obtained in Anteroposterior (AP) projection. COMPARISON: X-ray dated 06/07/2024 for comparison. FINDINGS: Gas Pattern: The small bowel loops are prominent, and air-distended with maximum caliber reaching 3 cm. Progressive course. Soft Tissues: Soft tissues of the abdomen appear normal without evidence of masses or calcifications. The liver, spleen, and kidneys are of normal size and position. Status post cholecystectomy with surgical clips. 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 Right total hip replacement prosthesis. IMPRESSION: The small bowel loops are prominent, air-distended with maximum caliber reaching 3 cm. Progressive course. Picture of ongoing/early small bowel obstruction/ileus. Suggest clinical correlation and follow-up imaging. Can advise CT for further work up. Electronically signed by Leo Lira 06-09-2024 05:43 AM PG Care Time/CCT Total # of Minutes Spent Total Time Spent with Patient: Total time spent is greater than 50% in coordination of care (as documented) at patient's floor/unit and/or counseling patient: Coding Level of Care Code 82378 INT INP/OBS CARE 3/75MIN Diagnoses Urinary retention R33.9 SBO (small bowel obstruction) K56.609 Gout M10.9 Benign essential hypertension I10 Obstructive sleep apnea G47.33 Nausea R11.0
[2024-06-09 06:58] LABS: Magnesium 1.9 mg/dl (1.7-2.4)
--- NOTE | 2024-06-09 07:13 | CT Scan Report ---
EXAM: CT abd pelvis wo con CLINICAL HISTORY: Evaluate for small bowel obstruction. S/p R inguinal repair on 06/03. TECHNIQUE: Non-contrast CT of the abdomen and pelvis was performed, with the following protocol: axial images, and reconstructed coronal and sagittal images. One of the following dose reduction techniques was utilized for this exam: Automated exposure control, adjustment of the mA and/or kV according to patient size, and use of iterative reconstruction. DLP: 1635.2 mGy.cm. COMPARISON: 06/06/2024. FINDINGS: Abdomen: Liver: Normal in size, shape, and density. No focal lesions, cysts, or masses were identified. Gallbladder and Biliary System: Status postcholecystectomy. Unchanged. The common bile duct is unremarkable. Pancreas: Pancreatic head, body, and tail are visualized and appear normal in size and density. No pancreatic masses or calcifications were noted. Spleen: Normal in size, shape, and density. No splenic lesions or masses were identified. Appendix: The appendix is normal in size without falguni-appendiceal fat stranding and without an appendicolith. No evidence of appendiceal abscess or perforation. Kidneys and Adrenal Glands: Mild bilateral dilatation of the pelvicalyceal system of both kidneys and both ureters, likely passive due to an over-distended urinary bladder. A few small hypodense renal cysts. Non-specific falguni-nephric fat stranding. Unchanged. Both kidneys are normal in size, shape, and position. Cortical thickness is within normal limits. No renal calculi. Adrenal glands are unremarkable. Abdominal Aorta and Vessels: Mild atherosclerotic changes of the abdominal aorta and major branches. Pelvis: The bladder is distended, measuring about 15 x 16 x 18 cm. Normal in contour and wall thickness. No intraluminal lesions. Prostate: Enlarged, measures about 6 x 5 x 4 cm. Spots of central calcifications. Unchanged. Seminal Vesicles: Normal appearance without abnormal enlargement or mass. Peritoneal and Retroperitoneal Structures: No free fluid or abnormal fluid collections were identified within the abdomen or pelvis. No lymphadenopathy was noted. Bowel: Prominent caliber of the small bowel loops, up to 2.8 cm maximum caliber. Small bowel loops feces sign is noted, which indicates hypoperistalsis. Mild colonic fecal loading. A few distal colon diverticula. No signs of inflammatory changes. Bones and Soft Tissues: Status post recent right inguinal hernia repair with post-surgical changes. Unchanged. Multiple prominent inguinal lymph nodes, the largest of, measured about 1.2 x 0.7 cm in the right side. Likely reactionary. Unchanged. Degenerative changes of the visualized skeleton. Right hip prosthesis. No hardware complications. No fractures or abnormal masses were identified. IMPRESSION: 1. Mild air-dilation of the small bowel loops, measuring up to 2.8 cm at maximum. A small bowel feces sign is present, suggesting hypoperistalsis. However, there are no definitive signs of small bowel obstruction. No definite transition point. Findings are suggestive of ileus. Clinical correlation and follow-up is recommended. (new findings) 2. A distended urinary bladder is suggestive of urinary retention. Please correlate clinically. 3. Enlarged prostate with central calcifications 4. Status post recent right inguinal hernia repair; unchanged. 5. Otherwise, no significant interval changes. Electronically signed by Leo Lira 06-09-2024 07:12 AM
[2024-06-09] MEDS ORDERED: oxyCODONE HCL IR 5 MG TAB (IMMEDIATE RELEASE) PO PRN (09:19)
[2024-06-09] MEDS: ONDANSETRON INJ 2 MG/ML 2 ML VIAL IV PRN (10:19)
[2024-06-09] MEDS: DOCUSATE SODIUM 100 MG CAP PO SCH (10:19)
[2024-06-09] MEDS: POLYETHYLENE (MIRALAX) 17 GM PACK PO PRN (10:19)
[2024-06-09] MEDS: LACTATED RINGER'S 1,000 ML IV SCH (10:19)
[2024-06-09] MEDS: ASPIRIN 81 MG ECTAB PO SCH (10:19)
[2024-06-09] MEDS: COLCHICINE 0.6 MG TAB PO SCH (10:19)
[2024-06-09] MEDS: METOPROLOL SUCC 50MG EXT REL TAB PO SCH (10:19)
--- NOTE | 2024-06-09 12:08 | Communication Note ---
Date of Service: June 09, 2024 seen in f/u from late AM admission - finally getting rest so allowed pt to rest. notes that when he was first home yesterday he was still feeling good, eating OK, no nausea, no problems. then around ~3-4p he started to feel nauseated and things spiraled from there. normally does not take BPH medications vitals noted, resting comfortably, nad. labs and diagnostics noted, CT reviewed (both films and report) #nausea/vomiting - appears likely to have been urinary retention > constipation mediated, with elements of both. clear liquids, advance as tolerated #urinary retention - age/CT appearance and sx all suggest BPH. probably acute prostatism from the physical stress of the last week. d/w "why yesterday" rather than day of surgery isn't entirely clear, but it is a very common phenomenon to happen to a irwin in his age range under physiologic stress. doubt infection although with new urine retention - vigilance for s/s infection (WBC previously deemed most likely due to steroids from surgery, and now slight uptick most likely stress response/demargination (especially since he's got no appearance of infection otherwise or on UA, and easily could have acute prostatism without infection; procal reassuring, CRP currently sent/pending) -sylvester drainage for now -flomax BID until retention issues have resolved -d/w that it often does take ~a week for urinary retention like this to resolve, and therefore lots of patients end up needing to go home with a sylvester. since that would be new/foreign to them, will give voiding trial prior to dc with the hopes that this will then mean he can go without a sylvester - but also we then discussed that it will probably mean being in the hospital a bit longer (if he looks and feels great, then maybe voiding trial late 06/10; realistically given the slow resolution of urinary retention more than likely voiding trial 06/11) #constipation - PO intake improved previously with small BM - had discharged pt with instructions that ongoing bowel regimen ~miralax TID would be warranted - suspect that full bladder adding "mass effect" in pelvis yesterday afternoon accentuated the problem. clinically doubt true ileus as much as appearing c/w constipation. miralax TID for today since nausea, likely long as he's able to tolerate bigger dosing would probably do ~85g tomorrow to move things forward more definitively. clinically doubt true ileus. #hyponatremia/hypokalemia - from being ill/ poor PO intake. IV fluids for now. follow PO intake, suspect will improve w better eating. #DVT proph - ambulation
[2024-06-09] MEDS ORDERED: MICONAZOLE NITRATE POWDER 85 GM EXT PRN (12:10)
[2024-06-09] MEDS: POLYETHYLENE (MIRALAX) 17 GM PACK PO SCH (13:13)
[2024-06-09 14:15] LABS: C Reactive Protein 15.01 mg/dl (0-0.5)
[2024-06-09] MEDS: TAMSULOSIN HCL 0.4 MG CAP PO SCH (20:21)
[2024-06-10 06:34] LABS: BUN Creatinine Ratio 19.2 (10-20); C Reactive Protein 7.3 mg/dl (0-0.5); Calcium 8.1 mg/dl (8.6-10.3); Creatinine Clr Calc Pharmacy 66.3 ml/min; Potassium 3.4 mmol/L (3.5-5.1)
[2024-06-10 06:44] LABS: Basophils # (auto) 0.03 K/uL (0.00-0.20); Basophils % (auto) 0.3 %; Eosinophils # (auto) 0.27 K/uL (0.00-0.50); Eosinophils % (auto) 2.7 %; Hematocrit (blood only) 37.5 % (42.0-52.0); Hemoglobin 12.8 g/dl (14.0-18.0); Immature Granulocytes # (auto) 0.16 K/uL (0.01-0.20); Immature Granulocytes % (auto) 1.6 %; Lymphocytes # (auto) 1.65 K/uL (1.20-3.40); Lymphocytes % (auto) 16.2 %; Mean Corpuscular Hgb Conc 34.1 g/dL (32.0-36.0); Mean Corpuscular Volume 84.8 fL (80.0-100.0); Mean Platelet Volume 10.2 fL (9.4-12.4); Monocytes # (auto) 1.16 K/uL (0.11-0.59); Monocytes % (auto) 11.4 %; Neutrophils # (auto) 6.91 K/uL (1.40-6.50); Neutrophils % (auto) 67.8 %; Platelet Count 267 K/uL (130-400); RDW Coefficient of Variation 12.8 % (11.5-14.5); RDW Standard Deviation 39.3 fL (36.4-46.3); Red Blood Count 4.42 M/uL (4.70-6.10); White Blood Count 10.18 K/ul (4.8-10.8)
--- NOTE | 2024-06-10 12:16 | Hospitalist Progress Note ---
Date of Service June 10, 2024 Assessment & Plan (1) Urinary retention: Plan: Appears to be due to prostatism. Fuentes catheter was placed in the ED. He is now on Flomax. Urology consultation requested and pending (2) SBO (small bowel obstruction): Plan: Ruled out. (3) Benign essential hypertension: Plan: Blood pressure remains stable. Lisinopril remains on hold for now (4) Obstructive sleep apnea: Plan: Stable. Continue current medical management (5) Nausea: Plan: Present on admission. Now resolved Plan Hopeful discharge to home tomorrow, June 11 Admission and Anticipated Discharge Date Admission Date: June 09, 2024 Subjective Alert and oriented. No distress. Fuentes catheter remains in place. Urology consultation requested and pending. He is now on Flomax for suspected prostatism causing the acute urinary retention. Review of Systems 2 Review of Systems: Constitutionalno fever or chills ENTno blurred vision, no double vision, no epistaxis, no sore throat Respiratoryno cough, no wheezing, no shortness of breath Cardiacno palpitations, no chest pain, no syncope Saturnino nausea, vomiting, diarrhea, melena, hematochezia GUno urinary retention, no urinary incontinence, no dysuria, no hematuria Musculoskeletalno joint pain, no muscle tenderness UrologyFoley catheter in place with no sign of gross hematuria Skinno bruising, no rashes, no pruritus Neurono isolated weakness, no paresthesia, no weakness Psychno depression, no anxiety Physical Exam 2 Physical Exam: General-alert and oriented x3, no fever, no chills HEENT-head atraumatic and normocephalic, pupils equal and reactive to light, extraocular muscles intact Neck-no lymphadenopathy or thyromegaly, trachea midline Chest-clear to auscultation. No rales, wheezing or rhonchi Cardiac-regular rate and rhythm, normal S1 and S2 Abdomen-normal bowel sounds, no hepatosplenomegaly Uro- Fuentes catheter in place with no evidence of gross hematuria Extremities-no cyanosis, clubbing, or edema Neuro-cranial nerves II through XII intact, motor and sensory function within normal limits, strength symmetrical, no focal deficits Psych-normal affect, normal mood Results & Data Results & Data Vital Signs (Past 12 Hours) Vital Signs Temp Pulse Pulse Pulse Resp BP BP 06/10/24 11:50 36.7 C 66 16 117/74 06/10/24 10:49 80 06/10/24 07:44 36.4 C L 57 L 16 130/76 06/10/24 07:38 60 06/10/24 03:22 37.2 C 56 L 20 110/71 Pulse Ox O2 Del Method 06/10/24 11:50 93 Room Air 06/10/24 10:49 06/10/24 07:44 93 Room Air 06/10/24 07:38 06/10/24 03:22 94 Room Air Laboratory Results 06/10/24 05:39 06/10/24 05:39 PG Care Time/CCT Total # of Minutes Spent Total Time Spent with Patient: Total time spent is greater than 50% in coordination of care (as documented) at patient's floor/unit and/or counseling patient: Coding Level of Care Code 45888 SUB INP/OBS CARE 3/50MIN Diagnoses Urinary retention R33.9 SBO (small bowel obstruction) K56.609 Benign essential hypertension I10 Obstructive sleep apnea G47.33 Nausea R11.0
--- NOTE | 2024-06-10 13:01 | Urology Consultation ---
Date of Consultation June 10, 2024 Assessment & Plan (1) Urinary retention: Plan Urinary retention is currently managed with a Fuentes catheter. Retention is likely multifactorial including underlying BPH, recent procedure/anesthesia, constipation Catheter is draining appropriatelyurine is clear yellow. Urine/blood cultures prelim no growth Creatinine 1.04, WBCs 10.18 Recommend maintaining Fuentes catheter for at least 1 week for bladder rest. We will arrange a f/u in the urology clinic for voiding trial. Continue Flomax. Urology will sign-off. Please call with any questions/concerns. History of Present Illness Attending Physician: Prashanth Gerardo MD History of Present Illness 79-year-old male with a recent repair of incarcerated right inguinal hernia on 06/03/24 and recent admission for constipation with discharge 06/08/2024 who returned to the ED due to persistent nausea and weakness. He also reported difficulty urinating and leaking of urine. On arrival he was afebrile and hemodynamically stable. Labs showing a leukocytosis of 18 and normal renal function. CT abdomen pelvis was obtained and demonstrated significant distended urinary bladder. Fuentes catheter placed in the ER with return of 2L urine. He is on Flomax BID. Urinalysis with trace blood, 1+LE, and 610 RBC. Urine and blood cultures pending. He is admitted to medicine service. CT abdomen pelvis- 1. Mild air-dilation of the small bowel loops, measuring up to 2.8 cm at maximum. A small bowel feces sign is present, suggesting hypoperistalsis. However, there are no definitive signs of small bowel obstruction. No definite transition point. Findings are suggestive of ileus. Clinical correlation and follow-up is recommended. (new findings) 2. A distended urinary bladder is suggestive of urinary retention. Please correlate clinically. 3. Enlarged prostate with central calcifications 4. Status post recent right inguinal hernia repair; unchanged. 5. Otherwise, no significant interval changes. Patient seen at bedside today. Awake and resting in bed on arrival. No acute distress. Overall feeling better since Fuentes catheter placement. His catheter is currently draining clear yellow urine. He denies prior urological history or history of malignancy. Prior to his recent procedure, he denies any baseline urinary issues. Allergies Allergy/AdvReac Type Severity Reaction Status Date / Time animal dander Allergy Intermediate ITCHY Verified 06/06/24 18:51 EYES, SNEEZING, RUNNY NOSE, CONGESTION house dust Allergy Intermediate ITCHY Verified 06/06/24 18:51 EYES, SNEEZING, RUNNY NOSE, CONGESTION house dust mite Allergy Intermediate ITCHY Verified 06/06/24 18:51 EYES, SNEEZING, RUNNY NOSE, CONGESTION Penicillins Allergy Intermediate HIVES, Verified 06/06/24 18:51 ULCERATIONS OF MOUTH ragweed pollen Allergy Intermediate ITCHY Verified 06/06/24 18:51 EYES, SNEEZING, RUNNY NOSE, CONGESTION Sulfa (Sulfonamide Allergy Intermediate HIVES,ULCERATIONS Verified 06/06/24 18:51 Antibiotics) OF MOUTH weed pollen Allergy Intermediate ITCHY Verified 06/06/24 18:51 EYES, SNEEZING, RUNNY NOSE, CONGESTION shellfish derived AdvReac Severe GOUT FLARE Verified 06/06/24 18:51 UP Home Medications Medication Instructions Recorded Confirmed Type hydrocortisone 1 % topical cream 1 applic topical BID PRN skin 11/07/23 06/09/24 Rx irritation #28.35 grams allopurinol 300 mg tablet 300 mg PO DAILY PRN gout 05/21/24 06/09/24 History aspirin 81 mg capsule 81 mg PO QAM 05/21/24 06/09/24 History colchicine 0.6 mg capsule 0.6 mg PO QAM 05/21/24 06/09/24 History (Mitigare) lisinopril 5 mg tablet 5 mg PO QAM 05/21/24 06/09/24 History loratadine 10 mg tablet 10 mg PO QAM 05/21/24 06/09/24 History magnesium 250 mg tablet 250 mg PO QAM 05/21/24 06/09/24 History metoprolol succinate 100 mg 100 mg PO QAM 05/21/24 06/09/24 History tablet,extended release 24 hr potassium gluconate 550 mg (90 mg) 550 mg PO QAM 05/21/24 06/09/24 History tablet ascorbic acid (vitamin C) 250 mg 250 mg PO DAILY 06/03/24 06/09/24 History tablet (Vitamin C) oxycodone 5 mg tablet 5 - 10 mg (1 - 2 x 5 mg) PO 06/03/24 06/09/24 Rx .[id number] PRN pain, for initial therapy, max 6 tabs per day #15 tabs ondansetron 8 mg disintegrating 8 mg PO Q8H PRN nausea and 04/24/25 04/28/25 Rx tablet vomiting #10 tabs ketoconazole 2 % shampoo 1 applic topical DIRECTED 06/06/24 06/09/24 History Patient History Medical History ALBER (obstructive sleep apnea) CPAP Chronic gout Benign essential hypertension Hx of colonic polyp Surgical History H/O right inguinal hernia repair (06/03/24) Right Open Incarcerated Recurrent Inguinal Hernia Repair with Mesh(Right) - Angelito Espinosa DO History of anesthesia reaction severe cramps/dry heaves Hx of detached retina repair several History of cataract surgery b/l History of colonoscopy (2022) History of tonsillectomy and adenoidectomy History of inguinal hernia repair right 1968 History of cholecystectomy 2000 History of total hip replacement right Family History Brother Coronary heart disease Acute myocardial infarction Father Colon cancer, Onset Age: 60 of it metastatic to liver 62 Mother Stroke Hypertension Grandfather (Paternal) Myocardial infarction, Onset Age: 59 [place] Grandfather (Maternal) Myocardial infarction, Onset Age: 40 ND age 40 Grandmother (Maternal) Schizophrenia, Onset Age: 60 Denies family history of Ovarian cancer Prostate cancer Breast cancer Social History Smoking Status: Smoker, status unknown Second Hand Exposure: No; Do You Dip or Chew Tobacco: No; Hx Alcohol Use: No Hx Substance Use: No Preferred Language: Korean Communication Ability: Effective Visual Impairment: Limited Hearing Ability: Normal [employer] Scientist Required: No Beliefs That Will Affect Care: None marital status: Current Living Situation: Spouse Current Living Situation Comment: Lives with in home current occupational status: employed 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 How many Children do You have: 2 Feels Safe at Home: Yes Childhood Exposure to Second-Hand Smoke: No Diet: regular caffeine: Yes during the past year weight has: remained stable Dental Care, Regularly: Yes Physical Activity Frequency: Daily Seatbelt Use: always Sunscreen Use: Yes Assistive Devices: BiPap, Glasses, Oxygen - at Night and Walker Review of Systems Review of Systems: All systems reviewed & are unremarkable except as noted in HPI & below Physical Exam Constitutional: no acute distress Respiratory: normal respiratory effort; no respiratory distress and no labored breathing Musculoskeletal: Head/Neck/Chest: normocephalic Skin: No visible rashes or lesions to exposed skin areas Neurologic: awake Psychiatric: A+Ox3, euthymic affect Genitourinary: Fuentes intact Results & Data Vital Signs (Past 12 Hours) Vital Signs Temp Pulse Pulse Pulse Resp BP BP 06/10/24 11:50 36.7 C 66 16 117/74 06/10/24 10:49 80 06/10/24 07:44 36.4 C L 57 L 16 130/76 06/10/24 07:38 60 06/10/24 03:22 37.2 C 56 L 20 110/71 Pulse Ox O2 Del Method 06/10/24 11:50 93 Room Air 06/10/24 10:49 06/10/24 07:44 93 Room Air 06/10/24 07:38 06/10/24 03:22 94 Room Air PG Care Time/CCT Total # of Minutes Spent Total Time Spent with Patient: Total time spent is greater than 50% in coordination of care (as documented) at patient's floor/unit and/or counseling patient: Coding Level of Care Code 15734 INT INP/OBS CARE 1/40MIN Diagnoses Urinary retention R33.9
[2024-06-11] MEDS: ACETAMINOPHEN 325 MG TAB PO PRN (09:36)
[2024-06-11 11:50] VITALS: BP 121/75; RESP 15; TEMP 98.4; O2SAT 94
--- NOTE | 2024-06-11 12:27 | Discharge Summary ---
Discharge Summary Date of Service June 11, 2024 Principal Dx & Hospital Course #1 = Principal Diagnosis (1) Urinary retention: Appears to be due to prostatism. Fuentes catheter was placed in the ED. He is now on Flomax. Urology consultation appreciated. Fuentes catheter will remain in place at discharge and they will see him in the office in 1 week on an outpatient basis for removal of Fuentes catheter and trial of voiding. (2) SBO (small bowel obstruction): Ruled out. (3) Benign essential hypertension: Blood pressure remains stable. Lisinopril remains on hold for now. This can be restarted at discharge (4) Obstructive sleep apnea: Stable. Continue current medical management (5) Nausea: Present on admission. Now resolved Plan Home today, June 11, with Fuentes catheter. Admission HPI Per Admitting Provider Oscar Gu is a 79yo male with recent repair of incarcerated right inguinal hernia, recent admission for constipation with discharge yesterday afternoon 06/08/24 returning with persistent nausea and generalized weakness and fatigue. He reports slight difficulty urinating and leaking of urine. Otherwise denies fever, chills, chest pain, palpitations, cough, SOB, abdominal pain. He has had poor appetite and decreased oral intake. Has had several small BMs since returning home. Discharge Exam General-alert and oriented x3, no fever, no chills HEENT-head atraumatic and normocephalic, pupils equal and reactive to light, extraocular muscles intact Neck-no lymphadenopathy or thyromegaly, trachea midline Chest-clear to auscultation. No rales, wheezing or rhonchi Cardiac-regular rate and rhythm, normal S1 and S2 Abdomen-normal bowel sounds, no hepatosplenomegaly Uro- Fuentes catheter in place with no evidence of gross hematuria Extremities-no cyanosis, clubbing, or edema Neuro-cranial nerves II through XII intact, motor and sensory function within normal limits, strength symmetrical, no focal deficits Psych-normal affect, normal mood Discharge Plan Discharge Items Patient Disposition: Home - Self-Care Reason For Visit: NAUSEA, WEAKNESS Discharge Diagnosis: Prostatism with acute urinary retention Activity: Resume your previous activity Non-emergency contact: Primary Care Provider and Urologist Call non-emergency contact if: your symptoms worsen Follow-up/Referrals: Ras Cintron MD [Primary Care Provider] - Diet: Regular Addtl Attending Provider Instructions: Fuentes catheter remains in place for now. Follow-up with urology in the office in 1 week. Take Flomax twice daily as directed. A prescription has been sent to your pharmacy. All other medications remain the same Pending Studies at Discharge: No Stand-Alone Forms: [facility], Smoking Cessation Medications and DC Order Prescriptions: New tamsulosin 0.4 mg Capsule 0.4 mg PO BID Qty: 30 0RF Continued ondansetron 8 mg tablet,disintegrating 8 mg PO Q8H PRN (Reason: nausea and vomiting) Qty: 10 0RF hydrocortisone 1 % cream 1 applic topical BID PRN (Reason: skin irritation) Qty: 28.35 2RF Rx Instructions: avoid around the eyes or rubbing eyes after use aspirin 81 mg Capsule 81 mg PO QAM metoprolol succinate 100 mg tablet extended release 24 hr 100 mg PO QAM allopurinol 300 mg tablet 300 mg PO DAILY PRN (Reason: gout) magnesium 250 mg tablet 250 mg PO QAM lisinopril 5 mg tablet 5 mg PO QAM loratadine 10 mg tablet 10 mg PO QAM potassium gluconate 550 mg (90 mg) tablet 550 mg PO QAM colchicine [Mitigare] 0.6 mg capsule 0.6 mg PO QAM ascorbic acid (vitamin C) [Vitamin C] 250 mg Tablet 250 mg PO DAILY oxycodone 5 mg tablet 5 - 10 mg PO .[id number] PRN (Reason: pain, for initial therapy, max 6 tabs per day) Qty: 15 0RF ketoconazole 2 % shampoo 1 applic topical DIRECTED Discharge Orders: Discharge Order (Routine); Ordered 06/11/24 Ordered By: Prashanth Gerardo Admission Data Admit Date/Time: 06/09/24 06:22 Attending Provider: Prashanth Gerardo Admit Provider: Rachna Hogan Primary Care Provider: Ras Cintron Other Providers: Rachna Hogan; Akil Vazquez; Barbie Diallo; Jarret Arroyo; Genie Espinosa; Escobar Tejada; Elizabeth Aguayo; Jessenia Boland; Tyson Kerr Hospital Stay Data Consultations 06/09/24 05:47 ED Decision to Admit Stat 06/10/24 08:18 Consult Urology Routine Diagnostic Imagining Performed 06/09/24 05:08 CT Abd and Pelvis [CT abd pelvis wo con] Stat Pending Results Patient Have Any Pending Studies at Discharge: No Discharge Instructions Given to Patient (Per Discharging Provider) Fuentes catheter remains in place for now. Follow-up with urology in the office in 1 week. Take Flomax twice daily as directed. A prescription has been sent to your pharmacy. All other medications remain the same Total Time Total Time Spent Total Time Spent (In Minutes): 50 minutes Coding Level of Care Code 02949 INP/OBS DISCH >30 MIN Diagnoses Urinary retention R33.9 SBO (small bowel obstruction) K56.609 Benign essential hypertension I10 Obstructive sleep apnea G47.33 Nausea R11.0
[2024-06-11 12:34] VITALS: PULSE 55
== END 2024-06-11 14:15 | disposition home or self-care (01) | DRG 726 ==
LOC: SUATTDRO → ED 03:40 → 2N 06:22 → SUATTDRO 06:22 → 2N 08:19
DX: Z91.013 Allergy to seafood; Z79.899 Other long term (current) drug therapy; E87.1 Hypo-osmolality and hyponatremia; G47.33 Obstructive sleep apnea (adult) (pediatric); K59.00 Constipation, unspecified; E87.6 Hypokalemia; N40.1 Benign prostatic hyperplasia with lower urinary tract symptoms; Z91.048 Other nonmedicinal substance allergy status; I10 Essential (primary) hypertension; Z79.82 Long term (current) use of aspirin; M10.9 Gout, unspecified; Z88.0 Allergy status to penicillin; Z88.2 Allergy status to sulfonamides; R33.9 Retention of urine, unspecified